=== PATIENT | male | born 1985 ===

== ENCOUNTER 2017-12-23 10:37 | Emergency (ER) | payer SELFPAY ==
[~2017-12-23] VITALS: Ht 180.3 cm; Wt 108.9 kg
--- OUTSIDE RECORDS SUMMARY | 2017-12-23 10:44 | XMS REPORT ---
Author Author [facility] Medical Staff Organization [facility] Address [address] [id number] Phone [phone] Summary purpose TRANSITION OF CARE AUTO GENERATION Chief Complaint and Reason for Visit No authorized Reason for Visit (Admitting Diagnosis) is available for this visit. Problem list No authorized problems tracked for continuity of care are available for this visit. Encounters No authorized problems tracked for encounter diagnoses are available for this visit. Medications No medications recorded for this patient visit Allergies, adverse reactions, alerts Allergen Category Ingredient Status Reaction Severity Onset No known drug allergies No known drug allergies No known drug allergies Confirmed or Verified Immunizations No immunizations recorded for this patient visit Relevant diagnostic tests and/or laboratory data No authorized results are available for this patient visit History of procedures No procedures recorded for this patient visit. Functional status No functional or cognitive status observations are available for this visit. Vital signs No authorized vital signs are available for this visit. Social history No Social History or smoking status observations were recorded for this visit. ( Unknown if ever smoked.) Treatment Plan No treatment plan text is available for this visit. Hospital discharge instructions No discharge instruction text is available for this visit.
--- OUTSIDE RECORDS SUMMARY | 2017-12-23 10:44 | XMS REPORT ---
Author Author [facility] Medical Staff Organization [facility] Address [address] [id number] Phone [phone] Summary purpose TRANSITION OF CARE AUTO GENERATION [...] visit Relevant diagnostic tests and/or laboratory data RESULTS Radiology Results 97-63-429357:58:00 Gallbladder Sono PACs Image DATE OF EXAM: May 23 2015 [id number] SONO : RADIOLOGY REPORT DATE OF SERVICE: 05/23/15 HISTORY:Right upper quadrant and flank pain, nausea. GALLBLADDER ULTRASOUND 0845 HOURS The gallbladder is normal without cholelithiasis or wall thickening. The bile ducts are normal in caliber. The visualized portions of the liver are normal. The right kidney is unobstructed. IMPRESSION: Negative gallbladder ultrasound. MD JEMMA De La Cruz/rizwana 05/23/2015 08:50:00 / 05/23/2015 16:17:30 cc:Dr. Jovany Alvares This document has been electronically Signed by: On: DATE OF EXAM: May 23 2015 [id number] [id number] : RADIOLOGY REPORT DATE OF SERVICE: 05/23/15 HISTORY:Right upper quadrant and flank pain, nausea. GALLBLADDER ULTRASOUND 0845 HOURS The gallbladder is normal without cholelithiasis or wall thickening. The bile ducts are normal in caliber. The visualized portions of the liver are normal. The right kidney is unobstructed. IMPRESSION: Negative gallbladder ultrasound. MD JEMMA De La Cruz/rizwana 05/23/2015 08:50:00 / 05/23/2015 16:17:30 cc:Dr. Jovany Alvares This document has been electronically Signed by: CRISTOBAL HIGGINS MD On: May 24 20158:58A Result Amended on 2015-05-24 at 08:58:56. Previous status was DC. History of procedures Procedure Code Code Type Description Date Performed Performing Physician 19409 CPT-4 ECHO EXAM OF ABDOMEN 05-23-2015 JO YEPEZ Functional status No functional or cognitive status [...]
--- OUTSIDE RECORDS SUMMARY | 2017-12-23 10:45 | XMS REPORT ---
Author [facility] Medical Staff Organization [facility] Address [address] [place], [place] [address] Phone [phone] Summary purpose TRANSITION OF CARE AUTO GENERATION [...] for this patient visit History of procedures Procedure Code Code Type Description Date Performed Performing Physician 33919 CPT-4 EMERGENCY DEPT VISIT 07-03-2015 GILBERTO BLANK 42468 CPT-4 EMERGENCY DEPT VISIT 07-03-2015 GILBERTO BLANK Functional status Functional Status Finding Observation Time Abdomen Appearance round 16-29-093292:00 Abdomen soft 37-21-271777:00 Hdez no 97-02-119426:00 Urination normal 53-08-738398:00 Quality sym/unlabored 30-01-541680:00 Cough non-productive 19-74-245629:00 Secretions no 50-31-453450:00 Breath Sounds RUL clear 61-79-444645:00 Breath Sounds RML clear 45-70-446774:00 Breath Sounds RLL clear 27-57-002118:00 Breath Sounds CATY clear 19-97-559613:00 Breath Sounds LLL clear 09-24-676549:00 Airway natural 34-41-185695:00 Chest Tube no 68-31-192217:00 Oxygen no :22 Temp >100.4 no 23-15-430660:00 Temp <96.8 no 85-18-750988:00 Chills with rigors no :00 HR > 90bpm no :00 Respirations > 20 no : Systolic <90 no : headache stiff neck no : Rapid Resp no : Nursing Note Vs obtained. Discussed discharge instructions and pt verbalized his understanding. Pt stable to ambulate of hart with scripts in hand and a note for work. Pt to waiting room until his ride arrives. :22 Vital signs Type Value Date Respiration Rate 20breaths per minute : Pulse 82beats per minute : Oxygen Saturation 95% :22 BP Systolic 138mmHg :22 BP Diastolic 87mmHg :22 Temperature 98.2F :22 Weight 270LB 07-54-019405:50 Social history Type Value Smoking Status NEVER SMOKER Treatment Plan No treatment plan text is available for this visit. Hospital discharge instructions Dismissal Condition fair Disposition on DC home DC Inst/Educ Give yes Med/Side Effects Rev yes PNE Vac None Flu Vac None Tetanus Vac current
--- OUTSIDE RECORDS SUMMARY | 2017-12-23 10:45 | XMS REPORT ---
Author Author [facility] Medical Staff Organization [facility] Address [address] [place], [place] [address] Phone [phone] Summary purpose TRANSITION OF CARE AUTO GENERATION [...] Relevant diagnostic tests and/or laboratory data RESULTS Therapeutic Drug Monitoring 75-87-933647:20:00 Result Normal Range Units Acetaminophen L 7.3 10.0-30.0 ug/ml Chemistry 57-45-064407:20:00 Result Normal Range Units Sodium 137 134-145 mEq/l Potassium 3.9 3.5-5.1 mEq/l Chloride 102 98-107 mEq/l CO2 23.0 22-28 mEq/l Glucose 104 70-105 mg/dl BUN 10 7-18 mg/dl Creatinine 0.91 0.6-1.3 mg/dl Calcium 9.1 8.4-10.2 mg/dl Uric Acid H 8.5 2.6-7.2 mg/dl TP - Total Protein 7.9 6.0-8.3 g/dl Albumin 4.2 3.5-5 g/dl Bilirubin - Total H 1.2 0.1-1.0 mg/dl AST 16 10-42 IU/L ALT 24 12-65 IU/L ALP 89 39-107 IU/L Osmolality L 273.2 280-300 mOsm/L Albumin/Globulin Ratio 1.1 0-8 Anion GAP 12.0 8-16 BUN/Creatinine Ratio 11.0 10-20 Estimated GFR 97 >=60 mL/min/1.7 Hematology 14-00-057498:20:00 Result Normal Range Units WBC H 11.5 4.8-10.8 103/uL RBC 4.8 4.7-6.1 106/uL HGB 14.9 13.0-18.0 g/dl HCT 43.7 41.9-52.0 % MCV 91.2 80-94 FL MCH H 31.1 27-31 pg MCHC 34.1 33-37 g/dl RDW 12.5 11.5-15.5 % PLT 242 130-400 103/uL MPV 10.3 7.3-10.4 FL Neutro % H 75.1 40-70 % Lymph % L 17.2 20-40 % [place] % 6.8 0-10.0 % Eos % 0.3 0-7.0 % Baso % 0.3 0-2 % Neutro # H 8.6 1.5-7.5 103/uL Lymph # 2.0 0.9-4.0 103/uL [place] # 0.8 0-0.8 103/uL Eos # 0.0 0-0.6 103/uL Baso # 0.0 0-0.1 103/uL Radiology Results [id number]:25:00 Ankle 3 View PACs Image DATE OF EXAM: Nov 03 2015 RAD 0094-ANKLE 3 VIEW- LEFT: RADIOLOGY REPORT DATE OF SERVICE: 11/03/15 HISTORY: Patient has ankle pain. Patient slipped on stairs 5 days earlier. LEFT ANKLE 3 VIEWS 1232 HOURS The ankle mortise appears intact. No fracture or joint effusion are seen. Soft tissues are normal. IMPRESSION: Negative study for any fracture. There is some soft tissue swelling. DO SANDY Lazcano/char 11/03/2015 12:57:00 / 11/03/2015 13:05:19 cc: This document has been electronically Signed by: On: DATE OF EXAM: Nov 03 2015 RAD 0094-ANKLE 3 VIEW- LEFT: RADIOLOGY REPORT DATE OF SERVICE: 11/03/15 HISTORY: Patient has ankle pain. Patient slipped on stairs 5 days earlier. LEFT ANKLE 3 VIEWS 1232 HOURS The ankle mortise appears intact. No fracture or joint effusion are seen. Soft tissues are normal. IMPRESSION: Negative study for any fracture. There is some soft tissue swelling. DO SANDY Lazcano/char 11/03/2015 12:57:00 / 11/03/2015 13:05:19 cc: This document has been electronically Signed by: RASHEED VALDES, JO On: :24P Result Amended on 2015-11-06 at 14:30:24. Previous status was OR. 38-93-523909:20:00 Result Normal Range Units MPV 10.3 7.3-10.4 FL History of procedures Procedure Code Code Type Description Date Performed Performing Physician 61103 CPT-4 ROUTINE VENIPUNCTURE 11-03-2015 JO MARLENI 15162 CPT-4 X-RAY EXAM OF ANKLE 11-03-2015 JO MARLENI 54080 CPT-4 COMPREHEN METABOLIC PANEL 11-03-2015 JO MARLENI 35474 CPT-4 ANALGESICS NON-OPIOID 1 OR 2 11-03-2015 JO MARLENI 98298 CPT-4 ASSAY OF BLOOD/URIC ACID 11-03-2015 JO MARLENI 97640 CPT-4 COMPLETE CBC W/AUTO DIFF WBC 11-03-2015 JO MARLENI 42929 CPT-4 EMERGENCY DEPT VISIT 11-03-2015 JO MARLENI 80092 CPT-4 EMERGENCY DEPT VISIT 11-03-2015 JO MARLENI Functional status Functional Status Finding Observation Time Abdomen Appearance round 45-61-990940:15 Abdomen soft 06-27-675793:15 Hdez no 75-75-227260:15 Urination normal 98-69-709666:15 Quality sym/unlabored 95-29-787434:15 Cough absent 91-36-470979:15 Secretions no 18-28-980130:15 Breath Sounds RUL clear 00-65-048292:15 Breath Sounds RML clear 09-99-390258:15 Breath Sounds RLL clear 39-72-271950:15 Breath Sounds CATY clear 76-90-517725:15 Breath Sounds LLL clear 50-00-570612:15 Airway natural 28-34-416511:15 Chest Tube no 99-12-916618:15 Oxygen no 74-86-825661:40 Temp >100.4 no 48-23-482059:15 Temp <96.8 no 89-08-538621:15 Chills with rigors no 34-38-069016:15 HR > 90bpm no 90-80-047262:15 Respirations > 20 no :15 Systolic <90 no :15 headache stiff neck no :15 Nursing Note PT was give extensive education on use of tylenol and IBP 20150709:42 Vital signs Type Value Date Respiration Rate 18breaths per minute :40 Pulse 77beats per minute :40 Oxygen Saturation 99% :40 BP Systolic 125mmHg :40 BP Diastolic 80mmHg :40 Temperature 97.8F :40 Height 70inches :35 Weight 250.2LB 04-41-762255:35 Social history Type Value Smoking Status FORMER SMOKER Treatment Plan No treatment plan text is available for this visit. Hospital discharge instructions Dismissal Condition good Disposition on DC home DC Inst/Educ Give yes Med/Side Effects Rev yes Comment: impernol PNE Vac None Flu Vac None
--- OUTSIDE RECORDS SUMMARY | 2017-12-23 10:45 | XMS REPORT ---
Author [facility] Medical Staff Organization [facility] Address [address] [place], [place] [address] Phone [phone] Summary purpose TRANSITION OF CARE AUTO GENERATION [...] recorded for this patient visit. Functional status Functional Status Finding Observation Time Abdomen Appearance round 28-46-318774:00 Abdomen soft 49-47-379482:00 Hdez no 19-03-000050:00 Urination normal 79-26-857013:00 Quality sym/unlabored 97-88-748031:00 Cough non-productive 72-28-236038:00 Secretions no 87-62-225689:00 Breath Sounds RUL clear 19-64-037214:00 Breath Sounds RML clear 50-03-772143:00 Breath Sounds RLL clear 02-02-945297:00 Breath Sounds CATY clear 68-24-978679:00 Breath Sounds LLL clear 93-44-363188:00 Airway natural 01-75-690776:00 Chest Tube no 68-19-885847: Oxygen no :22 Temp >100.4 no 06-20-852983:00 Temp <96.8 no 19-37-856836:00 Chills with rigors no 02-21-112176:00 HR > 90bpm no 22-35-900741:00 Respirations > 20 no 35-72-595316:00 Systolic <90 no :00 headache stiff neck no :00 Rapid Resp no : Nursing Note Vs obtained. Discussed discharge instructions and pt verbalized his understanding. Pt stable to ambulate of hart with scripts in hand and a note for work. Pt to waiting room until his ride arrives. : Vital signs Type Value Date Respiration Rate 20breaths per minute : Pulse 82beats per minute : Oxygen Saturation 95% :22 BP Systolic 138mmHg :22 BP Diastolic 87mmHg :22 Temperature 98.2F :22 Weight 270LB 33-99-379314:50 Social history Type Value Smoking Status NEVER SMOKER Treatment Plan No treatment plan text is available for this visit. Hospital discharge instructions Dismissal Condition fair Disposition on DC home DC Inst/Educ Give yes Med/Side Effects Rev yes PNE Vac None Flu Vac None Tetanus Vac current
--- OUTSIDE RECORDS SUMMARY | 2017-12-23 10:45 | XMS REPORT | Continuity of Care Document ---
Demographics x Preferred Language Unknown Marital Status Unknown Temple Affiliation Unknown Race Unknown Ethnic Group Unknown Author Author [facility] Organization [facility] Address Unknown Phone Unavailable Allergies Active Description Code Type Severity Reaction Onset Reported/Identified Relationship to Patient Clinical Status Yes No known drug allergies [id number] ND N/A N/A Confirmed or Verified Medications There is no data. Problems Date Dx Coded Attending Type Code Diagnosis Diagnosed By 11/09/2013 JO MILLER 826.0 FX PHALANX, FOOT-CLOSED 11/09/2013 JO MILLER 959.7 LOWER LEG INJURY NOS 11/09/2013 JO MILLER E916 STRUCK BY FALLING OBJECT Procedures Code [place] [address] X-RAY EXAM OF FOOT 11/09/2013 70165 EMERGENCY DEPT VISIT 11/09/2013 34298 EMERGENCY DEPT VISIT 11/09/2013 01140 ROUTINE VENIPUNCTURE 11/03/2015 26017 X-RAY EXAM OF ANKLE 11/03/2015 08106 COMPREHEN METABOLIC PANEL 11/03/2015 28233 ANALGESICS NON-OPIOID 1 OR 2 11/03/2015 56475 ASSAY OF BLOOD/URIC ACID 11/03/2015 10242 COMPLETE CBC W/AUTO DIFF WBC 11/03/2015 22130 EMERGENCY DEPT VISIT 11/03/2015 Results Test Result Range CBC WITH DIFF - 05/20/15 00:00 BASO% 0.4 % 0-2 EOS% 1.1 % 0-7.0 HCT 46.3 % 41.9-52.0 HGB 15.9 G/DL 13.0-18.0 LYMPH% 20.6 % 20-40 MCH 31.4 PG 27-31 MCHC 34.3 G/DL 33-37 MCV 91.5 FL 80-94 MONO% 6.3 % 0-10.0 MPV 10.5 FL 7.3-10.4 NEUTRO% 71.3 % 40-70 PLT 262 10^3u 130-400 RBC 5.1 10^6u 4.7-6.1 RDW 12.6 % 11.5-15.5 WBC 9.2 10^3u 4.8-10.8 NEUTRO# 6.5 10^3u 1.5-7.5 LYMPH# 1.9 10^3u 0.9-4.0 MONO# 0.6 10^3u 0-0.8 EOS# 0.1 10^3u 0-0.6 BASO# 0.0 10^3u 0-0.1 IMM GRANULOCYTE % 0.3 % IMM GRANULOCYTE # 0.0 10^3u 0-5 UA - 05/20/15 00:00 PH 6.0 4.5-8.0 SG 1.020 1.003-1.035 UABILI NEGATIVE UABLD NEGATIVE UACOLOR YEL UAGLU NEGATIVE UAKET NEGATIVE UALEUK NEGATIVE UANIT NEGATIVE UAURO 0.2 0-0.2 UCX NO CLARITY CL PROTEIN NEGATIVE UA WBC R05 UA RBC NORBC SQUAMOUS EPITHELIAL CELLS FEW BACTERIA Sperm present MUCOUS OCC LIP - 05/20/15 00:00 LIP 158 U/L 73-393 CMP - 05/20/15 00:00 ALB 4.1 G/DL 3.5-5 ALP 84 IU/L 39-107 ALT 53 IU/L 12-65 AST 43 IU/L 10-42 BCR 14.3 10-20 BUN 16 MG/DL 7-18 CA 9.4 MG/DL 8.4-10.2 CL 102 MEQ/L 98-107 CO2 23.3 MEQ/L 22-28 CREA 1.12 MG/DL 0.6-1.3 EGFR 77 eGFR >=60 GLU 112 MG/DL 70-105 K 4.5 MEQ/L 3.5-5.1 NA 138 MEQ/L 134-145 OSMSC 277.6 MOSML 280-300 TBIL 0.9 MG/DL 0.1-1.0 TP 7.6 G/DL 6.0-8.3 Albumin/Globulin Ratio 1.2 0-8 Anion Gap 12.7 8-16 CBC WITH DIFF - 11/03/15 00:00 BASO% 0.3 % 0-2 EOS% 0.3 % 0-7.0 HCT 43.7 % 41.9-52.0 HGB 14.9 G/DL 13.0-18.0 LYMPH% 17.2 % 20-40 MCH 31.1 PG 27-31 MCHC 34.1 G/DL 33-37 MCV 91.2 FL 80-94 MONO% 6.8 % 0-10.0 MPV 10.3 FL 7.3-10.4 NEUTRO% 75.1 % 40-70 PLT 242 10^3u 130-400 RBC 4.8 10^6u 4.7-6.1 RDW 12.5 % 11.5-15.5 WBC 11.5 10^3u 4.8-10.8 NEUTRO# 8.6 10^3u 1.5-7.5 LYMPH# 2.0 10^3u 0.9-4.0 MONO# 0.8 10^3u 0-0.8 EOS# 0.0 10^3u 0-0.6 BASO# 0.0 10^3u 0-0.1 IMM GRANULOCYTE % 0.3 % IMM GRANULOCYTE # 0.0 10^3u 0-5 CMP - 11/03/15 00:00 ALB 4.2 G/DL 3.5-5 ALP 89 IU/L 39-107 ALT 24 IU/L 12-65 AST 16 IU/L 10-42 BCR 11.0 10-20 BUN 10 MG/DL 7-18 CA 9.1 MG/DL 8.4-10.2 CL 102 MEQ/L 98-107 CO2 23.0 MEQ/L 22-28 CREA 0.91 MG/DL 0.6-1.3 EGFR 97 eGFR >=60 GLU 104 MG/DL 70-105 K 3.9 MEQ/L 3.5-5.1 NA 137 MEQ/L 134-145 OSMSC 273.2 MOSML 280-300 TBIL 1.2 MG/DL 0.1-1.0 TP 7.9 G/DL 6.0-8.3 Albumin/Globulin Ratio 1.1 0-8 Anion Gap 12.0 8-16 ACETAMINOPHEN - 11/03/15 00:00 ACETA 7.3 UG/ML 10.0-30.0 URIC - 11/03/15 00:00 URIC 8.5 MG/DL 2.6-7.2 Encounters ACCT No. Visit Date/Time Discharge Status Pt. Type Provider Facility Loc./Unit Complaint [id number] 11/03/2015 11:30:00 11/03/2015 13:43:00 DIS Emergency JO YEPEZ [facility] EMR [id number] 07/03/2015 07:54:00 07/03/2015 08:27:00 DIS Emergency JADON ESPINOZA [facility] EMR [id number] 05/23/2015 08:27:00 05/23/2015 08:27:00 DIS Outpatient JO YEPEZ [facility] [id number] 05/20/2015 11:22:00 05/20/2015 14:00:00 DIS Emergency JO YEPEZ [facility] EMR [id number] 11/09/2013 12:30:00 11/09/2013 13:55:00 DIS Emergency JO MILLER [facility] EMR [id number] 06/05/2015 00:00:00 Document Registration [id number] 06/05/2014 00:00:00 Document Registration [id number] 04/30/2017 16:55:00 04/30/2017 23:59:59 [facility] [id number] 03/24/2016 13:25:01 ACT Unknown
--- OUTSIDE RECORDS SUMMARY | 2017-12-23 10:45 | XMS REPORT ---
Author Author [facility] Medical Staff Organization [facility] Address [address] [id number] Phone [phone] Summary purpose TRANSITION OF CARE AUTO GENERATION [...] Relevant diagnostic tests and/or laboratory data RESULTS Routine Urinalysis 94-10-428454:30:00 Result Normal Range Units Color YELLOW Clarity Clear Specific [place] 1.020 1.003-1.035 pH 6.0 4.5-8.0 Glucose NEGATIVE Bilirubin NEGATIVE Ketones NEGATIVE Protein NEGATIVE Urobilinogen 0.2 0-0.2 E.U./dL Nitrites NEGATIVE Blood NEGATIVE Leukocytes NEGATIVE WBCs 0-5 RBCs No RBC's Seen. Squamous Epithelial Few Bacteria Sperm present Mucous Occasional Chemistry 53-08-153692:55:00 Result Normal Range Units Sodium 138 134-145 mEq/l Potassium 4.5 3.5-5.1 mEq/l Chloride 102 98-107 mEq/l CO2 23.3 22-28 mEq/l Glucose H 112 70-105 mg/dl BUN 16 7-18 mg/dl Creatinine 1.12 0.6-1.3 mg/dl Calcium 9.4 8.4-10.2 mg/dl TP - Total Protein 7.6 6.0-8.3 g/dl Albumin 4.1 3.5-5 g/dl Bilirubin - Total 0.9 0.1-1.0 mg/dl AST H 43 10-42 IU/L ALT 53 12-65 IU/L ALP 84 39-107 IU/L Lipase 158 73-393 U/L Osmolality L 277.6 280-300 mOsm/L Albumin/Globulin Ratio 1.2 0-8 Anion GAP 12.7 8-16 BUN/Creatinine Ratio 14.3 10-20 Estimated GFR 77 >=60 mL/min/1.7 Hematology 73-57-117049:55:00 Result Normal Range Units WBC 9.2 4.8-10.8 103/uL RBC 5.1 4.7-6.1 106/uL HGB 15.9 13.0-18.0 g/dl HCT 46.3 41.9-52.0 % MCV 91.5 80-94 FL MCH H 31.4 27-31 pg MCHC 34.3 33-37 g/dl RDW 12.6 11.5-15.5 % PLT 262 130-400 103/uL MPV H 10.5 7.3-10.4 FL Neutro % H 71.3 40-70 % Lymph % 20.6 20-40 % [place] % 6.3 0-10.0 % Eos % 1.1 0-7.0 % Baso % 0.4 0-2 % Neutro # 6.5 1.5-7.5 103/uL Lymph # 1.9 0.9-4.0 103/uL [place] # 0.6 0-0.8 103/uL Eos # 0.1 0-0.6 103/uL Baso # 0.0 0-0.1 103/uL Body Fluid 70-90-201819:30:00 Result Normal Range Units pH 6.0 4.5-8.0 Radiology Results 16-78-022821:04:00 Abdomen 2 View PACs Image DATE OF EXAM: May 20 2015 RAD 0037-ABDOMEN 2 VIEW : RADIOLOGY REPORT DATE OF SERVICE:05/20/15 HISTORY:Right flank pain. ABDOMEN 2 VIEWS 1205 HOURS There are no definite renal calculi. In the right side of the pelvis just to the right of the first coccygeal segment, there is a tiny opacity measuring 2.5 mm raising the question of distal right ureteric stone. Phleboliths could also have this appearance. The bowel gas pattern is normal. There is no free air. IMPRESSION:Question of distal right ureteric calculus versus a pelvic phlebolith. Clinical correlation is needed. Consider follow-up CT if felt clinically indicated. MD JEMMA De La Cruz/gricelda07/21/2014 19:29:00 / 05/21/2015 21:32:00 cc:Dr. Karli Tejeda - [facility] family doctor This document has been electronically Signed by: On: DATE OF EXAM: May 20 2015 RAD 0037-ABDOMEN 2 VIEW : RADIOLOGY REPORT DATE OF SERVICE:05/20/15 HISTORY:Right flank pain. ABDOMEN 2 VIEWS 1205 HOURS There are no definite renal calculi. In the right side of the pelvis just to the right of the first coccygeal segment, there is a tiny opacity measuring 2.5 mm raising the question of distal right ureteric stone. Phleboliths could also have this appearance. The bowel gas pattern is normal. There is no free air. IMPRESSION:Question of distal right ureteric calculus versus a pelvic phlebolith. Clinical correlation is needed. Consider follow-up CT if felt clinically indicated. MD JEMMA De La Cruz/gricelda07/21/2014 19:29:00 / 05/21/2015 21:32:00 cc:Dr. Karli Tejeda - [facility] family doctor This document has been electronically Signed by: CRISTOBAL HIGGINS MD On: May 22 2015 12:04P Result Amended on 2015-05-22 at 12:04:51. Previous status was MT. 98-31-626821:55:00 Result Normal Range Units MPV H 10.5 7.3-10.4 FL History of procedures Procedure Code Code Type Description Date Performed Performing Physician 89585 CPT-4 URINALYSIS AUTO W/SCOPE 05-20-2015 JO MARLENI 38511 CPT-4 COMPLETE CBC W/AUTO DIFF WBC 05-20-2015 JO MARLENI 11983 CPT-4 COMPREHEN METABOLIC PANEL 05-20-2015 JO MARLENI 96434 CPT-4 X-RAY EXAM OF ABDOMEN 05-20-2015 JO MARLENI 11509 CPT-4 ASSAY OF LIPASE 05-20-2015 JO MARLENI J1885 CPT-4 KETOROLAC TROMETHAMINE INJ 05-20-2015 JO MARLENI J2405 CPT-4 ONDANSETRON HCL INJECTION 05-20-2015 JO MARLENI J1170 CPT-4 HYDROMORPHONE INJECTION 05-20-2015 JO MARLENI J1170 CPT-4 HYDROMORPHONE INJECTION 05-20-2015 JO MARLENI 93351 CPT-4 ROUTINE VENIPUNCTURE 05-20-2015 JO MARLENI 94779 CPT-4 EMERGENCY DEPT VISIT 05-20-2015 JO MARLENI 53260 CPT-4 EMERGENCY DEPT VISIT 05-20-2015 JO MARLENI 31789 CPT-4 THER/PROPH/DIAG INJ IV PUSH 05-20-2015 JO MARLENI 81220 CPT-4 TX/PRO/DX INJ SAME DRUG DIE OPERATOR 05-20-2015 JO MARLENI 73251 CPT-4 TX/PRO/DX INJ NEW DRUG ADDON 05-20-2015 JO MARLENI 46195 CPT-4 HYDRATE IV INFUSION ADD-ON 05-20-2015 JO MARLENI Functional status Functional Status Finding Observation Time Abdomen Appearance flat 97-21-436877:30 Abdomen soft :30 Urination normal 86-33-896272:30 Quality sym/unlabored 15-19-445247:30 Airway natural :30 Chest Tube no :30 Temp >100.4 no :30 Temp <96.8 no :30 Chills with rigors no :30 HR > 90bpm no :30 Respirations > 20 no :30 Systolic <90 no :30 headache stiff neck no :30 Rapid Resp no :30 IV Site Location Lt hand :50 IV Type peripheral :50 IV Site Information discontinued :50 IV Site Start Attmpt 1 times 01-28-814775:50 IV Site Carlos 20 :50 IV Site Appearance WNL :50 IV Site Color clear :50 IV Site Patent yes :50 Dressing Type gauze :50 Nursing Note Pt given discharge instructions et verbalized an understanding of instructions given. Pt ambulatory off unit at this time. :55 Vital signs No authorized vital signs are available for this visit. Social history No Social History or smoking status observations were recorded for this visit. ( Unknown if ever smoked.) Treatment Plan No treatment plan text is available for this visit. Hospital discharge instructions Dismissal Condition good Disposition on DC home DC Inst/Educ Give yes Med/Side Effects Rev yes PNE Vac none Flu Vac none Tetanus Vac unsure
--- NOTE | 2017-12-23 11:12 | ED Integumentary General ---
General Chief Complaint: Skin/Wound Problems Stated Complaint: POSS SPIDER BITE ON LT CHEEK History of Present Illness Date Seen by Provider: Dec 23, 2017 Time Seen by Provider: 10:58 Initial Comments This is a 32 y/o male presenting to the ED via private vehicle for chief complaint of facial swelling after a presumed spider bite to the left cheek 3 days ago. Pt states that he woke up with a hot burning sensation on the left side of his face, he did not see or feel anything bite him. He states that the initial wound looked like 3 red dots. Pt reports he has constant pain, rated at a 7/10 with pain and swelling increasing. The pain radiates to his ear and jaw. He states that he has been squeezing the lesion with minimal drainage and tries to keep it clean with alcohol. He denies fever, chills, nausea or vomiting. Pt states he is "not feeling right". (ILENE RUTLEDGE) Allergies and Home Medications Allergies Coded Allergies: No Known Drug Allergies (Unverified , 12/23/17) Home Medications Sulfamethoxazole/Trimethoprim 1 Each Tablet, 1 EACH PO BID Prescribed by: JOSÉ LUIS MUNIZ on 12/23/17 1142 Patient Home Medication List Home Medication List Reviewed: Yes (ILENE RUTLEDGE) Constitutional: see HPI; No chills, No fever EENTM: see HPI, ear pain (L ear pain, radiation from his cheek ), mouth pain; No throat pain, No throat swelling Respiratory: no symptoms reported Cardiovascular: no symptoms reported Gastrointestinal: no symptoms reported; No constipation, No diarrhea, No nausea Skin: see HPI, other (swelling of left cheek ) (ILENE RUTLEDGE) Past Vdmltnv-Gaptna-Pllmcn Hx Patient Social History Alcohol Use: Occasionally Uses Alcohol Beverage of Choice: Beer Recreational Drug Use: No Smoking Status: Never a Smoker Recent Foreign Travel: No Contact w/Someone Who Travel: No (ILENE RUTLEDGE) Past Medical History Surgeries: Yes Orthopedic Respiratory: No Cardiac: No Neurological: No Genitourinary: No Gastrointestinal: No Musculoskeletal: No Endocrine: No HEENT: No Cancer: No Psychosocial: No Integumentary: No (ILENE RUTLEDGE) Physical Exam Vital Signs Vital Signs - First Documented 12/23/17 12/23/17 10:44 11:50 Temp 96.3 Pulse 78 Resp 18 B/P (MAP) 154/97 (116) Pulse Ox 98 (JOSÉ LUIS MORENO MD) Vital Signs Capillary Refill : (ILENE RUTLEDGE MED STUDENT) General Appearance: WD/WN, no apparent distress HEENT: TM abnormal (L) (TM slightly injected) Neck: non-tender, full range of motion, supple, normal inspection Cardiovascular: normal peripheral pulses, regular rate, rhythm, no edema, no gallop, no JVD, no murmur Respiratory: chest non-tender, lungs clear, normal breath sounds, no respiratory distress, no accessory muscle use 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, no motor/sensory deficits, alert, normal mood/affect, oriented x 3 Skin Problem Location: face Skin Problem Character: drainage (scant yellow discharge is noted on patients bandage), erythema (left lower cheek ), lesion (1 cm X 0.5 cm white-yellow ulceration surrounded by 3 cm x 2 cm raised induration and erythema, minimal fluid collection is noted with US ), swelling (Left lower cheek ) Lymphatic: other (2 lymph nodes are palpable in the submandibular region, non tender to palpation ) (ILENE RUTLEDGE STUDENT) Progress/Results/Core Measures Results/Orders Vital Signs/I&O 12/23/17 12/23/17 10:44 11:50 Temp 96.3 96.3 Pulse 78 78 Resp 18 18 B/P (MAP) 154/97 (116) 154/97 (116) Pulse Ox 98 (JOSÉ LUIS MORENO MD) Progress Progress Note : Time: 11:20 Progress Note patient seen and examined, US was used to determine if lesion needed drainage. Imaging shows minimal fluid collection, will start patient on antibiotics. (ILENE RUTLEDGE MED STUDENT) Progress Note : Progress Note This patient was personally interviewed, seen, and examined by me along with Ilene Rutledge, CARL[employer] Student. I have reviewed her documentation. I agree with her history, exam, assessment, and plan the following additions. Patient does not recall being bitten or stung. The lesion started with a few small red dots. Patient has other scattered abrasions and small breaks in the skin from being struck in the head by a pallet at work. Lesion no longer appears to be oozing. There is a area of fullness or induration directly beneath a cratered lesion. This was assessed by me with bedside ultrasound. No fluid collection was identified. Wound was dry and was therefore not cultured. Patient was started on antibiotics. Exam: Gen.: Alert, oriented, well-developed, no distress HEENT: Cratered lesion on the left cheek with localized induration. No swelling. No fluid collection on bedside ultrasound Heart: Regular rate and rhythm without murmur Lungs: Clear to auscultation bilaterally with normal effort Lymph: No significant periauricular or cervical lymphadenopathy appreciated by this provider. Skin: Localized erythema around the indurated area. (JOSÉ LUIS MORENO MD) Departure Impression Primary Impression: Cellulitis Qualified Codes: L03.211 - Cellulitis of face Disposition: HOME, SELF-CARE Condition: Stable Departure-Patient Inst. Decision time for Depature: 11:30 (JOSÉ LUIS MORENO MD) Referrals: NO,LOCAL PHYSICIAN (PCP/Family) Primary Care Physician Patient Instructions: Cellulitis (Skin Infection), Adult (DC) Add. Discharge Instructions: You to have a resolving abscess with some surrounding cellulitis. This should be treated with antibiotics. The exact cause of the wound is uncertain and may have been due to a small skin wound or a spider bite. Complete your antibiotics as prescribed. If you feel fluid is building up under the wound again, apply warm compresses for 10-20 minutes several times a day to encourage draining. If symptoms progress, return to care for further evaluation. Also return to care if you develop other symptoms such as fevers over 100. You may take Tylenol and/or ibuprofen for pain. All discharge instructions reviewed with patient and/or family. Voiced understanding. Scripts Sulfamethoxazole/Trimethoprim (Bactrim Ds Tablet) 1 Each Tablet 1 EACH PO BID, #14 TAB Prov: JOSÉ LUIS MORENO MD 12/23/17 ILENE RUTLEDGE MED STUDENT Dec 23, 2017 11:12 JOSÉ LUIS MORENO MD Dec 23, 2017 11:43
[2017-12-23] MEDS ORDERED: SULF1TAB35 PO (11:42)
[2017-12-23 11:50] VITALS: BP 154/97
== END 2017-12-23 11:50 | disposition home or self-care (01) ==
LOC: ER 10:40
DX: L03.211 Cellulitis of face (principal); Z98.890 Other specified postprocedural states
CPT/HCPCS: 99282

== ENCOUNTER 2018-02-11 10:18 | Emergency (ER) | payer SELFPAY ==
[~2018-02-11] VITALS: Ht 180.3 cm; Wt 100.7 kg
[~2018-02-11 10:18] MED LIST: SULF1TAB35 PO
--- OUTSIDE RECORDS SUMMARY | 2018-02-11 10:39 | XMS REPORT | Continuity of Care Document ---
Demographics x Preferred Language Unknown Marital Status Unknown [employer] Affiliation Unknown Race Unknown Ethnic Group Unknown Author Author [facility] Organization [facility] Address Unknown Phone Unavailable Allergies Active Description Code Type Severity Reaction Onset Reported/Identified Relationship to Patient Clinical Status Yes No known drug allergies [id number] ND N/A N/A Confirmed or Verified Yes No Known Drug Allergies [id number] Drug Allergy Unknown N/A 12/23/2017 Medications There is no data. Problems Date Dx Coded Attending Type Code Diagnosis Diagnosed By 11/09/2013 JO MILLER 826.0 FX PHALANX, FOOT-CLOSED 11/09/2013 JO MILLER 959.7 LOWER LEG INJURY NOS 11/09/2013 JO MILLER E916 STRUCK BY FALLING OBJECT 12/23/2017 JOSH LEI, JOSÉ LUIS T Ot L03.211 CELLULITIS OF FACE 12/23/2017 JOSH LEI, JOSÉ LUIS T Ot R22.0 LOCALIZED SWELLING, MASS AND LUMP, HEAD 12/23/2017 JOSÉ LUIS MORENO MD T Ot Z98.890 OTHER SPECIFIED POSTPROCEDURAL STATES 12/25/2017 JOSÉ LUIS MORENO MD Ot L03.211 CELLULITIS OF FACE 12/25/2017 JOSÉ LUIS MORENO MD Ot R22.0 LOCALIZED SWELLING, MASS AND LUMP, HEAD 12/25/2017 JOSÉ LUIS MORENO MD T Ot Z98.890 OTHER SPECIFIED POSTPROCEDURAL STATES Procedures Code [place] [address] X-RAY EXAM OF FOOT 11/09/2013 72916 EMERGENCY DEPT VISIT 11/09/2013 75779 EMERGENCY DEPT VISIT 11/09/2013 59760 ROUTINE VENIPUNCTURE 11/03/2015 24576 X-RAY EXAM OF ANKLE 11/03/2015 54779 COMPREHEN METABOLIC PANEL 11/03/2015 39903 ANALGESICS NON-OPIOID 1 OR 2 11/03/2015 59880 ASSAY OF BLOOD/URIC ACID 11/03/2015 73730 COMPLETE CBC W/AUTO DIFF WBC 11/03/2015 53428 EMERGENCY DEPT VISIT 11/03/2015 Results Test Result [...] Status Pt. Type Provider Facility Loc./Unit Complaint [id number] 11/03/2015 11:30:00 11/03/2015 13:43:00 DIS Emergency JO YEPEZ [facility] EMR [id number] 07/03/2015 07:54:00 07/03/2015 08:27:00 DIS Emergency JDAON ESPINOZA [facility] EMR [id number] 05/23/2015 08:27:00 05/23/2015 08:27:00 DIS Outpatient JO YEPEZ [facility] [id number] 05/20/2015 11:22:00 05/20/2015 14:00:00 DIS Emergency JO YEPEZ [facility] EMR [id number] 11/09/2013 12:30:00 11/09/2013 13:55:00 DIS Emergency JO MILLER [facility] EMR [id number] 06/05/2015 00:00:00 Document Registration [id number] 06/05/2014 00:00:00 Document Registration [id number] 12/23/2017 10:40:00 12/23/2017 11:50:00 DIS Emergency JOSH LEI, JOSÉ LUIS [facility] ER POSS SPIDER BITE ON LT CHEEK [id number] 04/30/2017 16:55:00 04/30/2017 23:59:59 CLS Outpatient TARA SALAZAR [facility] [id number] 03/24/2016 13:25:01 ACT Unknown
--- OUTSIDE RECORDS SUMMARY | 2018-02-11 10:39 | XMS REPORT | Clinical Summary ---
Author Author Admin, ALEXANDRU Organization [facility] Address Unknown Phone Allergies, Adverse Reactions, Alerts Allergy Name Reaction Description Start Date Severity Status Provider No Known Allergies Anette Sanchez Conditions or Problems Problem Name Problem Code Onset Date Status Entry Date Provider Comment Standard Description Annotate GOUT 274.9 Active Flakito Rodríguez MD Gout, unspecified BACK PAIN 724.5 Active Flakito Rodríguez MD Backache, unspecified ARM PAIN, LEFT 729.5 Active Tiffany Ellington APRN Pain in limb Subungual hematoma 923.3 Active Jovany Alvares MD Contusion of finger Fracture, toe 826.0 Active Jovany Alvares MD Closed fracture of one or more phalanges of foot Medication List Medication Instructions Start Date Stop Date Generic Name [facility] Status Provider Patient Instruction HYDROCODONE-ACETAMINOPHEN 5-325 MG TABS 1-2 TABS PO Q 4-6 HRS PRN HYDROCODONE-ACETAMINOPHEN 43308220224 Active Jovany Alvares MD Active IBUPROFEN 800 MG TABS 1 tab every 8 hours as needed for pain 2013 IBUPROFEN 23215699839 No Longer Active Jovany Alvares MD Active PREDNISONE 20 MG TAB 1 tab twice daily for 3 day, then one daily for three days PREDNISONE 19629817535 No Longer Active Jovany Alvares MD Active INDOMETHACIN 50 MG CAPS 1 po TID PRN Pain INDOMETHACIN 43551203693 No Longer Active Tiffany Ellington APRN Active TRAMADOL HCL 50 MG TABS 1 twice a day as needed for pain TRAMADOL HCL 46391676128 No Longer Active Tiffany Ellington APRN Active TRAMADOL HCL 50 MG TABS 1 twice a day as needed for pain TRAMADOL HCL 50 MG TABS 202792 TRAMADOL HCL Inactive INDOMETHACIN 50 MG CAPS 1 po TID PRN Pain INDOMETHACIN 50 MG CAPS 603398 INDOMETHACIN Inactive PREDNISONE 20 MG TAB 1 tab twice daily for 3 day, then one daily for three days PREDNISONE 20 MG TAB 175278 PREDNISONE Inactive IBUPROFEN 800 MG TABS 1 tab every 8 hours as needed for pain 2013 IBUPROFEN 800 MG TABS 828073 IBUPROFEN Inactive Vital Signs Date Name Value Unit Range Description blood pressure, diastolic 88 mm[Hg] BP vallejo blood pressure, systolic 138 mm[Hg] BP sys height E&M 71 [in_us] Bdy height pulse rate E&M 71 /min Heart rate temperature E&M 98.7 [degF] Body temperature weight E&M 261 [lb_av] Weight Measured blood pressure, diastolic 81 mm[Hg] BP vallejo blood pressure, systolic 126 mm[Hg] BP sys height E&M 71 [in_us] Bdy height pulse rate E&M 64 /min Heart rate temperature E&M 97.1 [degF] Body temperature weight E&M 265 [lb_av] Weight Measured Encounters Code Encounter Date Provider Facility CPT-22883 Level 3 Est. Patient 19:11:20 CDT Jovany Alvares MD [facility] CPT-05340 Level 3 Est. Patient 15:14:05 CDT Tiffany Ellington APRN [facility] CPT-94800 Level 2 New Patient 14:33:43 CDT Flakito Rodríguez MD [facility]
[2018-02-11] MEDS ORDERED: LIDOCAINE 1% INJ 20 ML 20 ML VIAL ONE (10:47)
[2018-02-11] MEDS ORDERED: LIDOCAINE 1% INJ 20 ML 20 ML VIAL INJ ONE (11:00)
[2018-02-11] MEDS ORDERED: HYDR-757 PO (11:11)
[2018-02-11] MEDS ORDERED: SULF1TAB35 PO (11:11)
--- NOTE | 2018-02-11 11:11 | ED Integumentary General ---
General Chief Complaint: Skin/Wound Problems Stated Complaint: BOIL ON LOWER BACK Nursing Triage Note: PT STATES HE HAS A BOIL ON HIS LT BUTTOCKS THAT STARTED 2 DAYS AGO AND IS GETTING WORSE, NO HX OF HAVIG ABSCESS DRAINED, UNKNOWN IF HE SAT ON ANYTHING TO CAUSE A WOUND. Source: patient Exam Limitations: no limitations History of Present Illness Date Seen by Provider: Feb 11, 2018 Time Seen by Provider: 10:55 Initial Comments To ER with c/o 2 day history of left buttock abscess. no fevers or chills Timing/Duration: just prior to arrival Severity: moderate Possible Cause: no cause identified Allergies and Home Medications Allergies Coded Allergies: No Known Drug Allergies (Unverified , 12/23/17) Home Medications Sulfamethoxazole/Trimethoprim 1 Each Tablet, 1 EACH PO BID Prescribed by: JOSÉ LUIS MUNIZ on 12/23/17 1142 Patient Home Medication List Home Medication List Reviewed: Yes Constitutional: see HPI; No chills, No fever EENTM: see HPI Respiratory: no symptoms reported Cardiovascular: no symptoms reported Genitourinary: no symptoms reported Musculoskeletal: no symptoms reported Skin: see HPI Psychiatric/Neurological: No Symptoms Reported Endocrine: No Symptoms Reported Hematologic/Lymphatic: No Symptoms Reported Past Fuenjmh-Saxpom-Iwygfy Hx Patient Social History Alcohol Use: Occasionally Uses Number of Drinks Today: AA Alcohol Beverage of Choice: Beer Recreational Drug Use: No Smoking Status: Former Smoker Former Smoker, Quit: Feb 04, 2006 Recent Foreign Travel: No Contact w/Someone Who Travel: No Recent Infectious Disease Expo: No Recent Hopitalizations: No Seasonal Allergies Seasonal Allergies: No Past Medical History Surgeries: Yes (LT ARM) Orthopedic Respiratory: No Cardiac: No Neurological: No Genitourinary: No Gastrointestinal: No Musculoskeletal: No Endocrine: No HEENT: No Cancer: No Psychosocial: No Integumentary: No Physical Exam Vital Signs Vital Signs - First Documented 02/11/18 10:31 Temp 97.5 Pulse 70 Resp 20 B/P (MAP) 144/91 (108) Pulse Ox 99 O2 Delivery Room Air Capillary Refill : Less Than 3 Seconds General Appearance: WD/WN, no apparent distress HEENT: PERRL/EOMI, normal ENT inspection Neck: non-tender, full range of motion Neurologic/Psychiatric: alert, normal mood/affect, oriented x 3 Skin: normal color, warm/dry Skin Problem Character: abscess, other (8cm erhtyema over left ischium. minimal purulent discharge from a central punctum.) Procedures/Interventions I&D : Blade Size: 11 I & D Procedure: betadine prep Packing/Drain: Idoform 07/10 Progress Anesthetized with 2 mL of 1% lidocaine without epinephrine. Open with a 1 similar incision using an 11 blade scalpel. A moderate amount of purulent material was expressed. Culture collected and sent to lab. Wound cavity then irrigated with Betadine/saline solution then packed with a couple inches of quarter-inch iodoform covered with gauze. Progress/Results/Core Measures Results/Orders My Orders Orders - SARIKA WORTHINGTON APRN Lidocaine 1% Inj 20 Ml (Xylocaine 1% Inj (02/11/18 11:00) Wound Culture (02/11/18 10:46) Lidocaine 1% Inj 20 Ml (Xylocaine 1% Inj (02/11/18 10:47) Medications Given in ED Current Medications Medications Dose Ordered Sig/Zack Route Start Time Stop Time Status Last Admin Dose Admin Lidocaine HCl 20 ml ONCE ONCE INJ 02/11/18 11:00 02/11/18 11:01 DC 02/11/18 10:56 5 ML Vital Signs/I&O 02/11/18 02/11/18 10:31 10:56 Temp 97.5 97.5 Pulse 70 Resp 20 B/P (MAP) 144/91 (108) Pulse Ox 99 O2 Delivery Room Air Blood Pressure Mean: 108 Departure Communication (Admissions) , No perineal involvement, no scrotal involvement Impression Primary Impression: Abscess Disposition: 01 HOME, SELF-CARE Condition: Stable Departure-Patient Inst. Decision time for Depature: 11:09 Referrals: NO,LOCAL PHYSICIAN (PCP/Family) Primary Care Physician Patient Instructions: Abscess Incision and Drainage (DC) Add. Discharge Instructions: 1. Please return here on Friday morning for packing removal and wound recheck. Return here before then for any fevers or worsening symptoms worsening pain or other concerns. Take antibiotics as directed. All discharge instructions reviewed with patient and/or family. Voiced understanding. Scripts Hydrocodone/Acetaminophen (Munger 5-325 Tablet) 1 Each Tablet 1 EACH PO Q4H PRN for FEVER, #14 TAB Prov: SARIKA WORTHINGTON APRN 02/11/18 Sulfamethoxazole/Trimethoprim (Bactrim Ds Tablet) 1 Each Tablet 1 EACH PO BID, #14 TAB Prov: SARIKA WORTHINGTON APRN 02/11/18 Work/School Note: Work Release Form Date Seen in the Emergency Department: Feb 11, 2018 Return to Work: Feb 13, 2018 SARIKA WORTHINGTON APRN Feb 11, 2018 11:11
[2018-02-11] MEDS ORDERED: TRIM/SULFAMETH 160/800 (SEPTRA DS) TAB PO ONE (11:15)
[2018-02-11 11:29] VITALS: BP 140/88
== END 2018-02-11 11:28 | disposition home or self-care (01) ==
LOC: EDUNIT# 10:18 → ER 10:21
DX: L02.31 Cutaneous abscess of buttock (principal); Z87.891 Personal history of nicotine dependence
CPT/HCPCS: 10061; 87070; 87077; 87186; 87205

== ENCOUNTER 2018-02-13 11:33 | Emergency (ER) | payer SELFPAY ==
[~2018-02-13] VITALS: Ht 180.3 cm; Wt 93.0 kg
[~2018-02-13 11:33] MED LIST changes: +HYDR-757 PO
--- OUTSIDE RECORDS SUMMARY | 2018-02-13 11:39 | XMS REPORT | Continuity of Care Document ---
Demographics x Preferred Language Unknown Marital Status Unknown Oriental Orthodox Affiliation Unknown Race Unknown Ethnic Group Unknown Author Author [facility] Organization [facility] Address Unknown Phone Unavailable Allergies Active Description Code Type Severity Reaction Onset Reported/Identified Relationship to Patient Clinical Status Yes No known drug allergies [id number] ND N/A N/A Confirmed or Verified Yes No Known Drug Allergies [id number] Drug Allergy Unknown N/A 12/23/2017 Medications There [...] Procedures Code [place] [address] X-RAY EXAM OF FOOT 11/09/2013 12009 EMERGENCY DEPT VISIT 11/09/2013 77349 EMERGENCY DEPT VISIT 11/09/2013 54180 ROUTINE VENIPUNCTURE 11/03/2015 18980 X-RAY EXAM OF ANKLE 11/03/2015 91315 COMPREHEN METABOLIC PANEL 11/03/2015 54111 ANALGESICS NON-OPIOID 1 OR 2 11/03/2015 03019 ASSAY OF BLOOD/URIC ACID 11/03/2015 87801 COMPLETE CBC W/AUTO DIFF WBC 11/03/2015 40174 EMERGENCY DEPT VISIT 11/03/2015 Results Test Result [...] - 11/03/15 00:00 URIC 8.5 MG/DL 2.6-7.2 Gram stain microscopy - 02/11/18 11:00 Gram stain microscopy Red blood cell debris NRG Bacteria identification in wound by culture - 02/11/18 11:00 Bacteria identification in wound by culture RML NRG FREE TEXT EXTERNAL MANY NRG QUANTITY OF GROWTH . NRG FREE TEXT ENTRY 2 REPORT PRINTED 02-12-2018 0906 NRG Encounters ACCT No. Visit Date/Time Discharge Status Pt. Type Provider Facility Loc./Unit Complaint [id number] 11/03/2015 11:30:00 11/03/2015 13:43:00 DIS Emergency JO YEPEZ [facility] EMR [id number] 07/03/2015 07:54:00 07/03/2015 08:27:00 DIS Emergency JADON ESPINOZA [facility] EMR [id number] 05/23/2015 08:27:00 05/23/2015 08:27:00 DIS Outpatient JO YEPEZ [facility] RAD [id number] 05/20/2015 11:22:00 05/20/2015 14:00:00 DIS Emergency JO YEPEZ [facility] EMR [id number] 11/09/2013 12:30:00 11/09/2013 13:55:00 DIS Emergency JO MILLER [facility] EMR [id number] 06/05/2015 00:00:00 Document Registration [id number] 06/05/2014 00:00:00 Document Registration [id number] 12/23/2017 10:40:00 12/23/2017 11:50:00 DIS Emergency JOSH LEI, JOSÉ LUIS [facility] ER POSS SPIDER BITE ON LT CHEEK [id number] 02/11/2018 17:11:00 Document Registration [id number] 04/30/2017 16:55:00 04/30/2017 23:59:59 [facility] Outpatient TARA SALAZAR [facility] [id number] 03/24/2016 13:25:01 ACT Unknown
--- NOTE | 2018-02-13 12:16 | ED Integumentary General ---
General Chief Complaint: Skin/Wound Problems Stated Complaint: ALLERGIC TO MEDICATION/WOUND CHECK Nursing Triage Note: PATIENT STATES THAT HE IS HERE FOR CONCERNS ABOUT HIS SKIN. HE WAS HERE TWO DAYS AGO TO HAVE AN ABCESS DRAINED. HE WAS PLACED ON BACTRIM. HE NOW HAS A RED BUMP/RASH ON HIS FACE AND STATES HE HAS A "SEVERE RASH" ON HIS GENITALS. STATES HIS SKIN IS PEELING OFF HIS GENITALS. Source: patient Exam Limitations: no limitations History of Present Illness Date Seen by Provider: Feb 13, 2018 Time Seen by Provider: 12:14 Initial Comments Patient is a 32-year-old male who presents to the emergency room with concerns for his skin. He was seen 2 days ago and had an I&D of an abscess on his left buttocks and was put on Bactrim. He reports that he had a reaction to the medication and it caused a bump on his face and a rash to his genital. He states the skin is peeling off of his genitals. He denies shortness of breath, itching rash. Timing/Duration: yesterday Associated Symptoms: change in skin texture Allergies and Home Medications Allergies Coded Allergies: No Known Drug Allergies (Unverified , 12/23/17) Home Medications Hydrocodone/Acetaminophen 1 Each Tablet, 1 EACH PO Q4H PRN for FEVER Prescribed by: SARIKA WORTHINGTON on 02/11/18 1111 Sulfamethoxazole/Trimethoprim 1 Each Tablet, 1 EACH PO BID Prescribed by: JOSÉ LUIS MUNIZ on 12/23/17 1142 Sulfamethoxazole/Trimethoprim 1 Each Tablet, 1 EACH PO BID Prescribed by: SARIKA WORTHINGTON on 02/11/18 1111 Patient Home Medication List Home Medication List Reviewed: Yes Constitutional: see HPI; No chills, No fever EENTM: other (red bump on his right cheek.) Genitourinary: see HPI, other ("white skin to the head of his penis") Skin: see HPI, lesions (draining abscess to his left buttocks), rash All Other Systems Reviewed Negative Unless Noted: Yes Past Ujdbqez-Fsuusc-Tilais Hx Past Med/Social Hx: Reviewed Nursing Past Med/Soc Hx Patient Social History Alcohol Beverage of Choice: Beer Former Smoker, Quit: Feb 04, 2006 Recent Foreign Travel: No Contact w/Someone Who Travel: No Recent Infectious Disease Expo: No Recent Hopitalizations: No Seasonal Allergies Seasonal Allergies: No Past Medical History Surgeries: Yes (LT ARM) Orthopedic Respiratory: No Cardiac: No Neurological: No Genitourinary: No Gastrointestinal: No Musculoskeletal: No Endocrine: No HEENT: No Cancer: No Psychosocial: No Integumentary: No Family Medical History Reviewed Nursing Family Hx Physical Exam Vital Signs Vital Signs - First Documented 02/13/18 11:50 Temp 96.6 Pulse 80 Resp 20 B/P (MAP) 143/83 (103) Pulse Ox 98 Capillary Refill : Less Than 3 Seconds General Appearance: WD/WN, no apparent distress Respiratory: lungs clear, normal breath sounds, no respiratory distress, no accessory muscle use Neurologic/Psychiatric: alert, normal mood/affect, oriented x 3 Skin: other (the patient is an uncircumcised male and a yeast infection has started after the antibiotic use.) Skin Problem Location: face (the patient has folliculitis to the left side of his face.), other (foreskin) Progress/Results/Core Measures Results/Orders Vital Signs/I&O 02/13/18 02/13/18 11:50 12:33 Temp 96.6 96.6 Pulse 80 80 Resp 20 20 B/P (MAP) 143/83 (103) 143/83 (103) Pulse Ox 98 98 Blood Pressure Mean: 103 Progress Progress Note : Progress Note I have seen and evaluated the patient. I believe that the patient has developed a yeast infection due to not being circumcised and recent start of antibiotics. I have informed him of plans of care, close follow up with primary care, and return precautions. Departure Impression Primary Impression: Abscess Additional Impressions: Wound check, abscess Balanitis Disposition: 01 HOME, SELF-CARE Condition: Stable/Unchanged Departure-Patient Inst. Referrals: NO,LOCAL PHYSICIAN (PCP/Family) Primary Care Physician Patient Instructions: Balanitis (DC), Folliculitis (DC), Skin Abscess Add. Discharge Instructions: Continue all previously prescribed medications as directed. Start using clotrimazole 1% [id number] to your foreskin area twice a day for 7 days. Practice good hygiene including bathing twice a day. Follow up with the doctor choice within 1 week for recheck. Return back to the emergency room for any concerns as needed. All discharge instructions reviewed with patient and/or family. Voiced understanding. Work/School Note: Work Release Form Date Seen in the Emergency Department: Feb 13, 2018 Return to Work: Feb 14, 2018 Restrictions: No Restrictions MARTHA HOWARD Feb 13, 2018 12:16
[2018-02-13 12:33] VITALS: BP 143/83
== END 2018-02-13 12:39 | disposition home or self-care (01) ==
LOC: EDUNIT# 11:33 → ER 11:35
DX: L02.31 Cutaneous abscess of buttock (principal); N48.1 Balanitis; Z87.891 Personal history of nicotine dependence
CPT/HCPCS: 99282

== ENCOUNTER 2018-04-21 12:38 | Emergency (ER) | payer SELFPAY ==
[~2018-04-21] VITALS: Ht 180.3 cm; Wt 91.6 kg
[~2018-04-21 12:38] MED LIST changes: +HYDR-4226 PO; -HYDR-757 PO
--- OUTSIDE RECORDS SUMMARY | 2018-04-21 12:46 | XMS REPORT | Continuity of Care Document ---
Demographics x Preferred Language Unknown Marital Status Unknown Quaker Affiliation Unknown Race Unknown Ethnic Group Unknown Author Author [facility] Organization [facility] Address Unknown Phone Unavailable Allergies Active Description Code Type Severity Reaction Onset Reported/Identified Relationship to Patient Clinical Status Yes No known drug allergies [id number] ND N/A N/A Confirmed or Verified Yes No Known Drug Allergies [id number] Drug Allergy Unknown N/A 12/23/2017 Medications There is no data. Problems Date Dx Coded Attending Type Code Diagnosis Diagnosed By 11/09/2013 JO MILLER 826.0 FX PHALANX, FOOT-CLOSED 11/09/2013 JO MILLER 959.7 LOWER LEG INJURY NOS 11/09/2013 JO MILLER E916 STRUCK BY FALLING OBJECT 12/23/2017 JOSH LEI, JOSÉ LUIS Alonso Ot L03.211 CELLULITIS OF FACE 12/23/2017 JOSH LEI, JOSÉ LUIS T Ot R22.0 LOCALIZED SWELLING, MASS AND LUMP, HEAD 12/23/2017 JOSÉ LUIS MORENO MD Ot Z98.890 OTHER SPECIFIED POSTPROCEDURAL STATES 12/25/2017 JOSÉ LUIS MORENO MD Ot L03.211 CELLULITIS OF FACE 12/25/2017 JOSÉ LUIS MORENO MD Ot R22.0 LOCALIZED SWELLING, MASS AND LUMP, HEAD 12/25/2017 JOSÉ LUIS MORENO MD T Ot Z98.890 OTHER SPECIFIED POSTPROCEDURAL STATES 02/11/2018 Ot L02.31 CUTANEOUS ABSCESS OF BUTTOCK 02/11/2018 Ot Z87.891 PERSONAL HISTORY OF NICOTINE DEPENDENCE 02/13/2018 Ot L02.31 CUTANEOUS ABSCESS OF BUTTOCK 02/13/2018 Ot 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 02/13/2018 Ot Z87.891 PERSONAL HISTORY OF NICOTINE DEPENDENCE Procedures Code [place] [address] X-RAY EXAM OF FOOT 11/09/2013 85875 EMERGENCY DEPT VISIT 11/09/2013 92500 EMERGENCY DEPT VISIT 11/09/2013 86575 ROUTINE VENIPUNCTURE 11/03/2015 65251 X-RAY EXAM OF ANKLE 11/03/2015 79900 COMPREHEN METABOLIC PANEL 11/03/2015 71884 ANALGESICS NON-OPIOID 1 OR 2 11/03/2015 51275 ASSAY OF BLOOD/URIC ACID 11/03/2015 73646 COMPLETE CBC W/AUTO DIFF WBC 11/03/2015 38437 EMERGENCY DEPT VISIT 11/03/2015 Results Test Result [...] 11:00 Bacteria identification in wound by culture [id number] NRG FREE TEXT EXTERNAL MANY NRG QUANTITY OF GROWTH . NRG FREE TEXT ENTRY 2 RML SENSITIVITY REPORTED 02/13/18 12:05 NRG CALL POSITIVES (F1 HELP) CALLED TO CIERA /ER 02/13/18 13:05 BY Gilbert GONZALEZ [facility] RML Sensitivity Panel - 02/11/18 11:00 Oxacillin susceptibility test by minimum inhibitory concentration R NRG Clindamycin susceptibility test by minimum inhibitory concentration <= NRG Erythromycin susceptibility test by minimum inhibitory concentration <= NRG Trimethoprim/sulfamethoxazole susceptibility test by minimum inhibitoryconcentration S NRG Vancomycin susceptibility test by minimum inhibitory concentration 1 NRG Levofloxacin susceptibility test by minimum inhibitory concentration 4 NRG Rifampin susceptibility test by minimum inhibitory concentration <= NRG Cefazolin susceptibility test by minimum inhibitory concentration > NRG Linezolid susceptibility test by minimum inhibitory concentration < = NRG Penicillin G susceptibility test by minimum inhibitory concentration > NRG Moxifloxacin susceptibility test by minimum inhibitory concentration S NRG Minocycline susc KIP 1 NRG Encounters ACCT No. Visit Date/Time Discharge Status Pt. Type Provider Facility Loc./Unit Complaint [id number] 11/03/2015 11:30:00 11/03/2015 13:43:00 DIS Emergency MARLENI, JO D [facility] EMR [id number] 07/03/2015 07:54:00 07/03/2015 08:27:00 DIS Emergency TANIAMARILYNNJADON [facility] EMR [id number] 05/23/2015 08:27:00 05/23/2015 08:27:00 DIS Outpatient JO YEPEZ [facility] [id number] 05/20/2015 11:22:00 05/20/2015 14:00:00 DIS Emergency JO YEPEZ [facility] EMR [id number] 11/09/2013 12:30:00 11/09/2013 13:55:00 DIS Emergency JO MILLER [facility] EMR [id number] 06/05/2015 00:00:00 Document Registration [id number] 06/05/2014 00:00:00 Document Registration [id number] 12/23/2017 10:40:00 12/23/2017 11:50:00 DIS Emergency JOSH LEI, JOSÉ LUIS Alonso [facility] ER POSS SPIDER BITE ON LT CHEEK [id number] 02/13/2018 11:35:00 Document Registration [id number] 02/11/2018 17:11:00 Document Registration [id number] 04/30/2017 16:55:00 04/30/2017 23:59:59 CLS Outpatient MARTIN PATTON [facility] [id number] 03/24/2016 13:25:01 ACT Unknown
--- NOTE | 2018-04-21 14:29 | ED Upper Extremity ---
General Chief Complaint: Upper Extremity Stated Complaint: R WRIST INJ Nursing Triage Note: pt reports r wrist and forearm pain since friday at 1600 after a fall off a ladder. Nursing Sepsis Screen: No Definite Risk Source: patient Exam Limitations: no limitations History of Present Illness Date Seen by Provider: Apr 21, 2018 Time Seen by Provider: 14:27 Initial Comments Patient is a 32-year-old male who presents to the emergency room with complaints of right wrist and right hand pain that started on 04/18/18 after falling 3-4 foot off of a ladder landing in a gaviria bracing himself with his right hand when he fell. He denies any other injuries from the fall other than the wrist and hand pain. Denies hitting his head, denies neck pain. Onset: last week Pain/Injury Location: right wrist, right hand Method of Injury: fell Allergies and Home Medications Allergies Coded Allergies: No Known Drug Allergies (Unverified , 12/23/17) Home Medications Hydrocodone/Acetaminophen 1 Each Tablet, 1 EACH PO Q4H PRN for FEVER Prescribed by: SARIKA WORTHINGTON on 02/11/18 1111 Sulfamethoxazole/Trimethoprim 1 Each Tablet, 1 EACH PO BID Prescribed by: JOSÉ LUIS MUNIZ on 12/23/17 1142 Sulfamethoxazole/Trimethoprim 1 Each Tablet, 1 EACH PO BID Prescribed by: SARIKA WORTHINGTON on 02/11/18 1111 Patient Home Medication List Home Medication List Reviewed: Yes Review of Systems Constitutional: see HPI; No chills, No fever Musculoskeletal: see HPI, joint pain (right wrist, right hand) All Other Systems Reviewed Negative Unless Noted: Yes Past Swtrmdx-Mocdmu-Xnlaoi Hx Past Med/Social Hx: Reviewed Nursing Past Med/Soc Hx Patient Social History Alcohol Use: Occasionally Uses Number of Drinks Today: AA Alcohol Beverage of Choice: Beer Recreational Drug Use: No Drug of Choice: past hx weed Smoking Status: Former Smoker Former Smoker, Quit: Feb 04, 2006 Recent Foreign Travel: No Contact w/Someone Who Travel: No Recent Infectious Disease Expo: No Recent Hopitalizations: No Physical Abuse: No Sexual Abuse: No Mistreated: No Fear: No Seasonal Allergies Seasonal Allergies: No Past Medical History Surgeries: Yes (LT ARM) Orthopedic Respiratory: No Cardiac: No Neurological: No Genitourinary: No Gastrointestinal: No Musculoskeletal: No Endocrine: No HEENT: No Cancer: No Psychosocial: No Integumentary: No Family Medical History Reviewed Nursing Family Hx Physical Exam Vital Signs Vital Signs - First Documented 04/21/18 13:53 Temp 98.1 Pulse 81 Resp 20 B/P (MAP) 137/97 (110) Pulse Ox 99 Capillary Refill : Less Than 3 Seconds Height, Weight, BMI Height: 5'11.00" Weight: 202lbs. 0oz. 91.572688db; BMI Method:Stated General Appearance: WD/WN, no apparent distress Cardiovascular: normal peripheral pulses, regular rate, rhythm, no edema, no gallop, no JVD, no murmur Respiratory: chest non-tender, lungs clear, normal breath sounds, no respiratory distress, no accessory muscle use Wrist: Yes normal inspection, Yes normal ROM Hand: normal ROM, Right, ecchymosis (to the right lateral dorsal surface of hand. ) Neurologic/Tendon: normal sensation, normal motor functions, normal tendon functions, responds to pain, no evidence tendon injury, other (distal pulses present, normal capillary refill. ) Neurologic/Psychiatric: alert, normal mood/affect, oriented x 3 Skin: normal color, warm/dry Progress/Results/Core Measures Results/Orders My Orders Orders - MARTHA HOWARD Wrist, Right, 3 Views Or More (04/21/18 14:26) Hand, Right, 3 Views (04/21/18 14:26) Vital Signs/I&O Blood Pressure Mean: 110 Progress Progress Note : Time: 15:20 Progress Note I have seen and evaluated the patient. I have informed him of normal imaging studies. He agrees with plans of care, plans for discharge, return precautions were given. Voices no questions or concerns. Diagnostic Imaging Diagonstic Imaging: Xray Plain Films/CT/US/NM/MRI: hand, other (wrist) Comments NAME: MEGAN MCCALL [facility] REC#: [id number] PHYSICIAN: MARTHA HOWARD CC: MARTHA HOWARD; CARLOS KWONG MD Page 1 of 1 RADIOLOGY REPORT VIA [facility]. [place], [place] CC: MARTHA HOWARD; CARLOS KWONG MD Page 1 of 1 RADIOLOGY REPORT NAME: MEGAN MCCALL [facility] REC#: [id number] PT STATUS: DEP ER : 1985 PHYSICIAN: MARTHA HOWARD ADMIT DATE: 04/21/18/ER Signed Date of Exam: 04/21/18 HAND, RIGHT, 3 VIEWS INDICATION: Right wrist and hand pain after a fall from a ladder. FINDINGS: There is mild bowing deformity of the distal shaft of the fifth metacarpal. A fracture line is not identified. No other fracture or malalignment is seen. There is no abnormal lytic or sclerotic focus. There is a possible old fracture deformity involving the ulnar styloid process with mild ulna minus variation. IMPRESSION: An ossicle at the level of the ulnar styloid process may be the result of an old injury. The bowing of the distal fifth metacarpal shaft may also be secondary to an old injury; however, no acute fracture is identified. Dictated by: Dictated on workstation # [id number] Dict: 04/21/18 1501 Trans: 04/22/18 1024 Interpreted by: CARLOS KWONG MD Electronically signed by: CARLOS KWONG MD 04/22/18 1024 NAME: MEGAN MCCALL [facility] REC#: [id number] PHYSICIAN: MARTHA HOWARD CC: MARTHA HOWARD; CARLOS KWONG MD Page 1 of 1 RADIOLOGY REPORT VIA [place], [place] CC: NATI HOWARD THOMAS J MD Page 1 of 1 RADIOLOGY REPORT NAME: MEGAN MCCALL [facility] REC#: [id number] PT STATUS: DEP ER : 1985 PHYSICIAN: MARTHA HOWARD ADMIT DATE: 04/21/18/ER Signed Date of Exam: 04/21/18 WRIST, RIGHT, 3 VIEWS OR MORE INDICATION: Fall from a ladder with right wrist injury and pain. TECHNIQUE: AP, oblique, and lateral views of the right wrist were obtained. FINDINGS: There is a corticated ossicle at the level of the ulnar styloid process, likely related to an old fracture. There is mild ulna minus variation; otherwise, no fracture or malalignment is seen. IMPRESSION: No acute abnormality is identified. There is mild ulna minus variation with a probable old fracture deformity of the ulnar styloid process. Dictated by: Dictated on workstation # [id number] Dict: 04/21/18 1503 Trans: 04/22/18 1024 Interpreted by: CARLOS KWONG MD Electronically signed by: CARLOS KWONG MD 04/22/18 1024 Reviewed: Reviewed by Me Departure Impression Primary Impression: Contusion of wrist Additional Impression: Right wrist sprain Disposition: HOME, SELF-CARE Condition: Stable/Unchanged Departure-Patient Inst. Decision time for Depature: 15:29 Referrals: NO,LOCAL PHYSICIAN (PCP) Primary Care Physician Patient Instructions: Wrist Sprain (DC) Add. Discharge Instructions: Rest, ice to the sore areas a 20 minute intervals, wear the Sy bandage as needed for comfort, you may use ibuprofen and Tylenol as directed by the bottle for pain relief. Follow-up with your primary care provider within 1 week for recheck. Return back to the emergency room for any worsening symptoms or concerns as needed. All discharge instructions reviewed with patient and/or family. Voiced understanding. MARTHA HOWARD Apr 21, 2018 14:29
--- NOTE | 2018-04-21 15:15 | Diagnostic Imaging Report ---
INDICATION: Right wrist and hand pain after a fall from a ladder. FINDINGS: There is mild bowing deformity of the distal shaft of the fifth metacarpal. A fracture line is not identified. No other fracture or malalignment is seen. There is no abnormal lytic or sclerotic focus. There is a possible old fracture deformity involving the ulnar styloid process with mild ulna minus variation. IMPRESSION: An ossicle at the level of the ulnar styloid process may be the result of an old injury. The bowing of the distal fifth metacarpal shaft may also be secondary to an old injury; however, no acute fracture is identified. Dictated by: Dictated on workstation # [id number]
--- NOTE | 2018-04-21 15:17 | Diagnostic Imaging Report ---
INDICATION: Fall from a ladder with right wrist injury and pain. TECHNIQUE: AP, oblique, and lateral views of the right wrist were obtained. FINDINGS: There is a corticated ossicle at the level of the ulnar styloid process, likely related to an old fracture. There is mild ulna minus variation; otherwise, no fracture or malalignment is seen. IMPRESSION: No acute abnormality is identified. There is mild ulna minus variation with a probable old fracture deformity of the ulnar styloid process. Dictated by: Dictated on workstation # [id number]
[2018-04-21 15:34] VITALS: BP 128/85
== END 2018-04-21 15:33 | disposition home or self-care (01) ==
LOC: EDUNIT# 12:38 → ER 12:39
DX: S63.501A Unspecified sprain of right wrist, initial encounter (principal); Z87.891 Personal history of nicotine dependence; W11.XXXA Fall on and from ladder, initial encounter
CPT/HCPCS: 73110; 73130

== ENCOUNTER 2018-05-30 17:18 | Emergency (ER) | payer SELFPAY ==
[~2018-05-30] VITALS: Ht 180.3 cm; Wt 104.3 kg
--- OUTSIDE RECORDS SUMMARY | 2018-05-30 18:54 | XMS REPORT | Continuity of Care Document ---
Demographics x Preferred Language Unknown Marital Status Unknown Advent Affiliation Unknown Race Unknown Ethnic Group Unknown Author Author [facility] Organization [facility] Address Unknown Phone Unavailable Allergies Active Description Code Type Severity Reaction Onset Reported/Identified Relationship to Patient Clinical Status Yes No known drug allergies [id number] ND N/A N/A Confirmed or Verified Yes No Known Drug Allergies [id number] Drug Allergy Unknown N/A 12/23/2017 Medications There [...] Procedures Code [place] [address] X-RAY EXAM OF FOOT 11/09/2013 91659 EMERGENCY DEPT VISIT 11/09/2013 26197 EMERGENCY DEPT VISIT 11/09/2013 60256 ROUTINE VENIPUNCTURE 11/03/2015 96131 X-RAY EXAM OF ANKLE 11/03/2015 09180 COMPREHEN METABOLIC PANEL 11/03/2015 68012 ANALGESICS NON-OPIOID 1 OR 2 11/03/2015 12240 ASSAY OF BLOOD/URIC ACID 11/03/2015 81683 COMPLETE CBC W/AUTO DIFF WBC 11/03/2015 43403 EMERGENCY DEPT VISIT 11/03/2015 Results Test Result [...] 11:00 Bacteria identification in wound by culture [id number] NRG FREE TEXT EXTERNAL MANY NRG QUANTITY OF GROWTH . NRG FREE TEXT ENTRY 2 RML SENSITIVITY REPORTED 02/13/18 12:05 NRG CALL POSITIVES (F1 HELP) CALLED TO CIERA /ER 02/13/18 13:05 BY Gilbert GONZALEZ [facility] RML Sensitivity Panel - 02/11/18 11:00 Oxacillin [...] Status Pt. Type Provider Facility Loc./Unit Complaint [id number] 11/03/2015 11:30:00 11/03/2015 13:43:00 DIS Emergency MARLENIJO Alonso [facility] EMR [id number] 07/03/2015 07:54:00 07/03/2015 08:27:00 DIS Emergency OLGA JADON Reanna [facility] EMR [id number] 05/23/2015 08:27:00 05/23/2015 08:27:00 DIS Outpatient JO YEPEZ [facility] [id number] 05/20/2015 11:22:00 05/20/2015 14:00:00 DIS Emergency MARLENIJO NAZARIO [facility] EMR [id number] 11/09/2013 12:30:00 11/09/2013 13:55:00 DIS Emergency JO MILLER [facility] EMR [id number] 06/05/2015 00:00:00 Document Registration [id number] 06/05/2014 00:00:00 Document Registration [id number] 04/21/2018 12:39:00 04/21/2018 15:33:00 DIS Emergency MARTHA HOWARD [facility] ER R WRIST INJ [id number] 12/23/2017 10:40:00 12/23/2017 11:50:00 DIS Emergency JOSH LEI, JOSÉ LUIS Alonso [facility] ER POSS SPIDER BITE ON LT CHEEK [id number] 02/13/2018 11:35:00 Document Registration [id number] 02/11/2018 17:11:00 Document Registration [id number] 04/30/2017 16:55:00 04/30/2017 23:59:59 CLS Outpatient TARA SALAZAR [facility] [id number] 03/24/2016 13:25:01 ACT Unknown
--- NOTE | 2018-05-30 20:08 | ED Integumentary General ---
General Chief Complaint: Skin/Wound Problems Stated Complaint: SPIDER BITE ON FACE/SWELLING Nursing Triage Note: STATES FRI/FRI NOTICED ABSCESS/SPIDER BITE LEFT UPPER LIP. STATES RECIEVED TETANUS, ROCEPHIN, AND 2 TWO OTHER SHOTS. PT STATES PLACED ON DOXY. STATES AREA WORSENED SINCE. Source: patient Exam Limitations: no limitations History of Present Illness Date Seen by Provider: May 30, 2018 Time Seen by Provider: 20:04 Initial Comments To ER by private vehicle with reports of a spider bite to the left upper lip. He states that he was putting on a shirt when he felt a spider bite him on Friday. Today is Friday. He was seen in urgent care at that time and given a shot of Rocephin, tetanus shot and given doxycycline prescription which he is still on. He denies improvement and reports persistent swelling despite warm compresses to the area. Timing/Duration: week, getting worse Severity: mild Location: face Allergies and Home Medications Allergies Coded Allergies: No Known Drug Allergies (Unverified , 12/23/17) Home Medications Hydrocodone/Acetaminophen 1 Each Tablet, 1 EACH PO Q4H PRN for FEVER Prescribed by: SARIKA WORTHINGTON on 02/11/18 1111 Sulfamethoxazole/Trimethoprim 1 Each Tablet, 1 EACH PO BID Prescribed by: JOSÉ LUIS MUNIZ on 12/23/17 1142 Sulfamethoxazole/Trimethoprim 1 Each Tablet, 1 EACH PO BID Prescribed by: SARIKA WORTHINGTON on 02/11/18 1111 Patient Home Medication List Home Medication List Reviewed: Yes Review of Systems Review of Systems Constitutional: see HPI, chills EENTM: see HPI, other (to the lateral aspect of the left upper lip just superior to the vermilion border is an area of induration and erythema and slight fluctuance. This measures about 1.5 cm.) Respiratory: no symptoms reported Cardiovascular: no symptoms reported Genitourinary: no symptoms reported Musculoskeletal: no symptoms reported Skin: no symptoms reported Endocrine: No Symptoms Reported Past Rkerhew-Dinvfu-Ppdhkf Hx Patient Social History Alcohol Use: Occasionally Uses Number of Drinks Today: AA Alcohol Beverage of Choice: Beer Recreational Drug Use: Yes Drug of Choice: past hx cannibus Smoking Status: Former Smoker Former Smoker, Quit: Feb 04, 2006 2nd Hand Smoke Exposure: No Recent Foreign Travel: No Contact w/Someone Who Travel: No Recent Infectious Disease Expo: No Recent Hopitalizations: No Immunizations Up To Date Tetanus Booster (TDap): Less than 5yrs Seasonal Allergies Seasonal Allergies: No Past Medical History Surgeries: Yes (LT ARM) Orthopedic Respiratory: No Cardiac: No Neurological: No Genitourinary: No Gastrointestinal: No Musculoskeletal: No Endocrine: No HEENT: No Cancer: No Psychosocial: No Integumentary: No Blood Disorders: No Physical Exam Vital Signs Vital Signs - First Documented 05/30/18 17:53 Temp 98.5 Pulse 84 Resp 20 B/P (MAP) 148/89 (108) Pulse Ox 96 O2 Delivery Room Air Capillary Refill : Less Than 3 Seconds General Appearance: WD/WN, no apparent distress HEENT: PERRL/EOMI, normal ENT inspection, other (to the lateral aspect upper lip just superior to the vermilion border is a 1.5 cm area of induration and erythema and slight fluctuance.) Neck: non-tender, full range of motion Respiratory: no respiratory distress, no accessory muscle use Gastrointestinal: normal bowel sounds, non tender Neurologic/Psychiatric: alert, normal mood/affect, oriented x 3 Skin: normal color, warm/dry Procedures/Interventions I&D : Blade Size: 11 Progress Wound anesthetized with 0.5 mL of 1% lidocaine without epinephrine. A stab incision made with an 11 blade scalpel over the area of Fluctuance. A moderate amount of purulent material was expressed. Culture of this was collected and sent to lab. Progress/Results/Core Measures Results/Orders My Orders Orders - SARIKA WORTHINGTON APRN Wound Culture (05/30/18 20:02) Rx-Hydrocodone/Apap 5-325 Mg (Rx-Vicodin (05/30/18 20:15) Vital Signs/I&O 05/30/18 17:53 Temp 98.5 Pulse 84 Resp 20 B/P (MAP) 148/89 (108) Pulse Ox 96 O2 Delivery Room Air Blood Pressure Mean: 108 Departure Impression Primary Impression: Abscess of face Disposition: 01 HOME, SELF-CARE Condition: Stable Departure-Patient Inst. Decision time for Depature: 20:07 Referrals: NO,LOCAL PHYSICIAN (PCP/Family) Primary Care Physician Patient Instructions: Skin Abscess Add. Discharge Instructions: 1. Return to ER for any concerns 2. Continue with the doxycycline and the warm compresses to the face. All discharge instructions reviewed with patient and/or family. Voiced understanding. Work/School Note: Work Release Form Date Seen in the Emergency Department: May 30, 2018 Return to Work: Jun 01, 2018 SARIKA WORTHINGTON APRN May 30, 2018 20:08
[2018-05-30] MEDS ORDERED: RX-HYDROCODONE/APAP 5/325 MG #4 TAB PK PO PRN (20:15)
[2018-05-30 20:23] VITALS: BP 142/78
== END 2018-05-30 20:23 | disposition home or self-care (01) ==
LOC: EDUNIT# 17:18 → ER 17:19
DX: L02.01 Cutaneous abscess of face (principal); Z87.891 Personal history of nicotine dependence
CPT/HCPCS: 87070; 87077; 87186; 87205; 99283

== ENCOUNTER 2018-12-19 17:33 | Emergency (ER) | payer SELFPAY ==
[~2018-12-19] VITALS: Ht 180.3 cm; Wt 98.4 kg
--- OUTSIDE RECORDS SUMMARY | 2018-12-19 17:40 | XMS REPORT ---
Author Author TORRIE RON Organization [facility] Address [address] [place] [address] Care Team Providers Care Director Of Residential Services Name Role Phone TORRIE RON Unavailable PROBLEMS Unknown Problems ALLERGIES No Known Allergies ENCOUNTERS Encounter Location Date Diagnosis [facility] [id number] [place] [phone] May, [facility] [id number] [place] [phone] May, Cellulitis of face L03.211 and Encounter for immunization Z23 [facility] [id number], [place] [address] Apr, Screen for STD (sexually transmitted disease) Z11.3 and Unprotected sex Z72.51 IMMUNIZATIONS Vaccine Route Administration Date Status ROCEPHIN 1 GM (IM) IM Intramuscular May 29, 2018 Administered TDAP (BOOSTRIX) IM Intramuscular May 29, 2018 Administered SOCIAL HISTORY Never Assessed REASON FOR VISIT spider bite on LT side of lip x 2 days. Pt states he felt the spider bite him a nd seen it fall to the floor. YONATAN Thompson PLAN OF CARE Activity Details Follow Up 2-3 days Reason:recheck VITAL SIGNS Height 71 in 2018-05-29 Weight 233.5 lbs 2018-05-29 Temperature 97.5 degrees Fahrenheit 2018-05-29 Heart Rate 92 bpm 2018-05-29 Respiratory Rate 18 2018-05-29 BMI 32.56 kg/m2 2018-05-29 Blood pressure systolic 122 mmHg 2018-05-29 Blood pressure diastolic 64 mmHg 2018-05-29 MEDICATIONS Medication Instructions Dosage Frequency Start Date End Date Duration Status Doxycycline Hyclate 100 MG Orally 2 times a day 1 capsule 12h May, 10 day(s) Active Ondansetron 4 MG Orally TID PRN 1 tablet on the tongue and allow to dissolve as needed May, 5 days Active RESULTS No Results PROCEDURES Procedure Date Ordered Result Body Site TDAP (BOOSTRIX) May 29, 2018 SINGLE IMMUNIZATION ADMIN May 29, 2018 THER/PROPH/DIAG INJ, SC/IM May 29, 2018 ROCEPHIN 1 GM (IM) May 29, 2018 INSTRUCTIONS MEDICATIONS ADMINISTERED No Known Medications MEDICAL (GENERAL) HISTORY Type Description Date Surgical History left arm surgery
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
--- OUTSIDE RECORDS SUMMARY | 2018-12-19 17:40 | XMS REPORT ---
Author Author TORRIE RON Organization [facility] Address [address] [place] [address] Care Team Providers Care Tableau Lead Name Role Phone TORRIE RON Unavailable PROBLEMS Unknown Problems ALLERGIES No Information ENCOUNTERS Encounter Location Date Diagnosis [facility] [id number], [place] [address] May, [facility] [id number], [place] [address] May, Cellulitis of face L03.211 and Encounter for immunization Z23 [facility] [id number], [place] [address] Apr, Screen for STD (sexually transmitted disease) Z11.3 and Unprotected sex Z72.51 IMMUNIZATIONS No Known Immunizations SOCIAL HISTORY Never Assessed REASON FOR VISIT Doctor's note PLAN OF CARE VITAL SIGNS MEDICATIONS Unknown Medications RESULTS No Results PROCEDURES No Known procedures INSTRUCTIONS MEDICATIONS ADMINISTERED No Known Medications MEDICAL (GENERAL) HISTORY Type Description Date Surgical History left arm surgery
[2018-12-19] MEDS ORDERED: LIDOCAINE 1% INJ 20 ML 20 ML VIAL INJ ONE (18:00)
--- NOTE | 2018-12-19 18:24 | ED Integumentary General ---
General Chief Complaint: Skin/Wound Problems Stated Complaint: LEFT HIP SORE Nursing Triage Note: TO TRIAGE WITH COMPLAINTS OF POSSIBLE SPIDER BITE TO LEFT LOWER ABD/GROIN AREA. STATES THE REDNESS STARTED YESTERDAY WHICH IS NOW SPREADING WITH A BLACK CENTER. COMPLAINS OF NAUSEA AND DIZZINESS. Source: patient Exam Limitations: no limitations History of Present Illness Date Seen by Provider: Dec 19, 2018 Time Seen by Provider: 18:00 Initial Comments Patient presents with going on for days of redness swelling and tenderness in his left anterior proximal thigh. Does not have a history of hidradenitis suppurativa. No fevers chills nausea vomiting. He's been using ibuprofen for the pain. Not seen anybody for nor started antibiotics yet. Allergies and Home Medications Allergies Coded Allergies: No Known Drug Allergies (Unverified , 12/23/17) Home Medications Hydrocodone/Acetaminophen 1 Each Tablet, 1 EACH PO Q4H PRN for FEVER Prescribed by: SRAIKA WORTHINGTON on 02/11/18 1111 Sulfamethoxazole/Trimethoprim 1 Each Tablet, 1 EACH PO BID Prescribed by: JOSÉ LUIS MUNIZ on 12/23/17 1142 Sulfamethoxazole/Trimethoprim 1 Each Tablet, 1 EACH PO BID Prescribed by: SARIKA WORTHINGTON on 02/11/18 1111 Patient Home Medication List Home Medication List Reviewed: Yes Review of Systems Review of Systems Constitutional: No chills, No diaphoresis EENTM: No ear discharge, No ear pain, No eye pain Respiratory: No cough, No phlegm Cardiovascular: No chest pain, No palpitations Past Zlvzqmx-Pitpua-Bxzxyv Hx Patient Social History Alcohol Use: Rarely Uses Number of Drinks Today: AA Alcohol Beverage of Choice: Beer Recreational Drug Use: No Drug of Choice: past hx cannibus Smoking Status: Former Smoker Former Smoker, Quit: Feb 04, 2006 2nd Hand Smoke Exposure: No Recent Foreign Travel: No Contact w/Someone Who Travel: No Recent Infectious Disease Expo: No Recent Hopitalizations: No Immunizations Up To Date Tetanus Booster (TDap): Less than 5yrs Seasonal Allergies Seasonal Allergies: No Past Medical History Surgeries: Yes (LT ARM) Orthopedic Respiratory: No Cardiac: No Neurological: No Genitourinary: No Gastrointestinal: No Musculoskeletal: No Endocrine: No HEENT: No Cancer: No Psychosocial: No Integumentary: No Blood Disorders: No Physical Exam Vital Signs Vital Signs - First Documented 12/19/18 17:46 Temp 98.2 Pulse 115 Resp 16 B/P (MAP) 148/94 (112) Pulse Ox 98 O2 Delivery Room Air Capillary Refill : Less Than 3 Seconds General Appearance: WD/WN, no apparent distress HEENT: PERRL/EOMI, pharynx normal Cardiovascular: normal peripheral pulses, regular rate, rhythm Respiratory: no respiratory distress, no accessory muscle use Skin: other (8 cm long by 3 cm wide area of erythema, induration with palpable fluctuance and some purulent discharge originating on the anterior proximal left thigh radiating down into the left inguinum.) Procedures/Interventions I&D : Site: left anterior proximal thigh Blade Size: 11 I & D Procedure: betadine prep (chlorhexidine) Progress Wound was cleaned then 5 cc of 1% lidocaine without epinephrine were infiltrated around the pointing. Wound was opened and a cross armstrong incision using an 11 blade. Wound was probed using a sterile cotton tipped swab breaking up loculations and a total of about 10 cc of thick purulent matter was expressed. Patient tolerated procedure well. Progress/Results/Core Measures Results/Orders Medications Given in ED Current Medications Medications Dose Ordered Sig/Zack Route Start Time Stop Time Status Last Admin Dose Admin Lidocaine HCl 20 ml ONCE ONCE INJ 12/19/18 18:00 12/19/18 18:01 DC 12/19/18 18:06 20 ML Vital Signs/I&O 12/19/18 17:46 Temp 98.2 Pulse 115 Resp 16 B/P (MAP) 148/94 (112) Pulse Ox 98 O2 Delivery Room Air Blood Pressure Mean: 112 Departure Impression Primary Impression: Abscess Disposition: 01 HOME, SELF-CARE Condition: Improved Departure-Patient Inst. Decision time for Depature: 18:16 Referrals: NO,LOCAL PHYSICIAN (PCP/Family) Primary Care Physician Patient Instructions: Abscess Incision and Drainage (DC) Add. Discharge Instructions: Keep the wound clean with regular soap and water. Change the dressing as often as it becomes soiled. sales support technician the antibiotics and take one tablet of Bactrim twice a day with food for the next week. Follow-up with primary care or return to urgent care/ER for recurrence of abscess. All discharge instructions reviewed with patient and/or family. Voiced understanding. Scripts Sulfamethoxazole/Trimethoprim (Bactrim Ds Tablet) 1 Each Tablet 1 EACH PO BID for 7 Days, #14 TAB 0 Refills Prov: JONAS,EMI J 12/19/18 EMI MCDANIEL Dec 19, 2018 18:24
[2018-12-19 18:27] VITALS: BP 148/94
[2018-12-19] MEDS ORDERED: SULF1TAB35 PO (18:29)
== END 2018-12-19 18:28 | disposition home or self-care (01) ==
LOC: EDUNIT# 17:33 → ER 17:35
DX: L02.416 Cutaneous abscess of left lower limb (principal); Z87.891 Personal history of nicotine dependence
CPT/HCPCS: 10060

== ENCOUNTER 2019-06-03 08:08 | Emergency (ER) | payer OTHER ==
[~2019-06-03] VITALS: Ht 180.3 cm; Wt 116.4 kg
[2019-06-03] MEDS ORDERED: TRIM/SULFAMETH 160/800 (SEPTRA DS) TAB PO STA (09:48)
[2019-06-03] MEDS ORDERED: SULF-222 PO (09:54)
--- NOTE | 2019-06-03 09:54 | ED Integumentary General ---
General Chief Complaint: Bite-Animal/Human/Insect Stated Complaint: SPIDER BITE Nursing Triage Note: Pt reports raking leaves yesterday and feeling a sting to the back of L leg. Pt is worried about a spider bite as had a terrible spider bite. Small puncture noted to back of leg. Pt reports mild pain at site. Source: patient Exam Limitations: no limitations History of Present Illness Date Seen by Provider: Jun 03, 2019 Time Seen by Provider: 09:41 Initial Comments Here with report of feeling like he got bit by an insect yesterday while raking leaves. He thought he felt something crawling and thinks he was bitten by a spider. Did have significant redness in the area of concern yesterday evening that is a little better this morning. States that it was 2-3 cm at least of redness but now and swelling about a centimeter. There is a central core. Apparently his had a spider bite that turned necrotic and he is very concerned about that. Denies other issues. Timing/Duration: yesterday, changing over time Severity: mild Location: extremities Possible Cause: insect bite Modifying Factors: improves with scratching Associated Symptoms: No blisters, No edema, No rash Allergies and Home Medications Allergies Coded Allergies: No Known Drug Allergies (Unverified , 12/23/17) Home Medications Hydrocodone/Acetaminophen 1 Each Tablet, 1 EACH PO Q4H PRN for FEVER Prescribed by: SARIKA WORTHINGTON on 02/11/18 1111 Sulfamethoxazole/Trimethoprim 1 Each Tablet, 1 EACH PO BID Prescribed by: JOSÉ LUIS MUNIZ on 12/23/17 1142 Sulfamethoxazole/Trimethoprim 1 Each Tablet, 1 EACH PO BID Prescribed by: SARIKA WORTHINGTON on 02/11/18 1111 Sulfamethoxazole/Trimethoprim 1 Each Tablet, 1 EACH PO BID Prescribed by: EMI MCDANIEL on 12/19/18 1829 Patient Home Medication List Home Medication List Reviewed: Yes Review of Systems Review of Systems Constitutional: see HPI; No chills, No fever Respiratory: no symptoms reported Cardiovascular: no symptoms reported Skin: see HPI, change in color, lesions Psychiatric/Neurological: No Symptoms Reported Past Ymwfnpb-Trllya-Sldswe Hx Past Med/Social Hx: Reviewed Nursing Past Med/Soc Hx Patient Social History Alcohol Use: Occasionally Uses Number of Drinks Today: AA Alcohol Beverage of Choice: Beer Recreational Drug Use: No Drug of Choice: past hx cannibus Smoking Status: Never a Smoker Former Smoker, Quit: Feb 04, 2006 2nd Hand Smoke Exposure: No Recent Foreign Travel: No Contact w/Someone Who Travel: No Recent Infectious Disease Expo: No Recent Hopitalizations: No Immunizations Up To Date Tetanus Booster (TDap): Less than 5yrs Seasonal Allergies Seasonal Allergies: No Past Medical History Surgeries: Yes (LT ARM, lung surgery as ) Orthopedic Respiratory: No Cardiac: No Neurological: No Genitourinary: No Gastrointestinal: No Musculoskeletal: No Endocrine: No HEENT: No Cancer: No Psychosocial: No Integumentary: No Blood Disorders: No Family Medical History Reviewed Nursing Family Hx Physical Exam Vital Signs Vital Signs - First Documented 06/03/19 08:12 Temp 36.7 Pulse 78 Resp 12 B/P (MAP) 138/98 (111) Pulse Ox 97 O2 Delivery Room Air Capillary Refill : Less Than 3 Seconds General Appearance: WD/WN, no apparent distress Cardiovascular: regular rate, rhythm, no murmur Respiratory: lungs clear, normal breath sounds Skin: normal color, warm/dry Skin Problem Location: lower extremities (left posterior leg) Skin Problem Character: lesion, other (central core surrounded by 1 cm to 2 cm of erythema. No obvious fluctuance area) Progress/Results/Core Measures Results/Orders Vital Signs/I&O 06/03/19 08:12 Temp 36.7 Pulse 78 Resp 12 B/P (MAP) 138/98 (111) Pulse Ox 97 O2 Delivery Room Air Blood Pressure Mean: 111 POS Progress Progress Note : Progress Note Seen and evaluated. Antibiotic ointment and Band-Aid over wound. Bactrim DS one tab by mouth given. We will continue his outpatient. Discharge home with return precautions. Patient verbalized understanding instructions and agreement with plan. Departure Impression Primary Impression: Spider bite wound Qualified Codes: T63.304A - Toxic effect of unspecified spider venom, undetermined, initial encounter Disposition: HOME, SELF-CARE Condition: Stable Departure-Patient Inst. Decision time for Depature: 09:53 Referrals: NO,LOCAL PHYSICIAN (PCP/Family) Primary Care Physician Patient Instructions: Insect Bites and Stings (DC), Spider Bites Add. Discharge Instructions: All discharge instructions reviewed with patient and/or family. Voiced understanding. Use antibiotic ointment and Band-Aid over wound twice daily for the next several days and then as needed. Take medications as directed. Follow-up with your Dr. in a few days for recheck. Return for worse pain, increased swelling, fever, red streaks up the leg or other concerns as needed. Scripts Sulfamethoxazole/Trimethoprim (Sulfamethoxazole-Tmp Ds Tablet) 1 Each Tablet 1 EACH PO BID, #14 TAB 0 Refills Prov: BRI ROBINS MD 06/03/19 Work/School Note: Work Release Form Date Seen in the Emergency Department: Jun 03, 2019 Return to Work: Jun 04, 2019 Restrictions: No Restrictions BRI ROBINS MD Jun 03, 2019 09:54 POS
[2019-06-03 10:01] VITALS: BP 138/98
--- NOTE | 2019-06-03 10:12 | NUR ---
Pt dismissed by another nurse prior to receive antibiotic.
== END 2019-06-03 10:01 | disposition home or self-care (01) ==
LOC: EDUNIT# 08:08 → ER 08:09
DX: T63.304A Toxic effect of unspecified spider venom, undetermined, initial encounter (principal); Z87.891 Personal history of nicotine dependence
CPT/HCPCS: 99283

== ENCOUNTER 2019-11-11 11:22 | Emergency (ER) | payer OTHER ==
[~2019-11-11] VITALS: Ht 180.3 cm; Wt 110.0 kg
[~2019-11-11 11:22] MED LIST changes: +SULF-222 PO
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
[2019-11-11 13:00] VITALS: BP 159/101
== END 2019-11-11 13:00 | disposition home or self-care (01) ==
LOC: EDUNIT# 11:22 → ER 11:23
DX: S83.412A Sprain of medial collateral ligament of left knee, initial encounter (principal); D16.22 Benign neoplasm of long bones of left lower limb; Z88.2 Allergy status to sulfonamides; Z87.891 Personal history of nicotine dependence; V01.90XA Pedestrian on foot injured in collision with pedal cycle, unspecified whether traffic or nontraffic accident, initial encounter
CPT/HCPCS: 73562

== ENCOUNTER 2022-02-17 20:05 | Emergency (ER) | payer OTHER ==
[~2022-02-17] VITALS: Ht 180 cm; Wt 125.0 kg
[~2022-02-17 20:05] MED LIST changes: -SULF1TAB35 PO; +SULF1TAB38 PO
[2022-02-17 20:24] VITALS: BP 143/89
--- NOTE | 2022-02-17 20:58 | ED GI ---
General Chief Complaint: COVID19 Suspect/Confirmed Stated Complaint: SOB,N/V,FEVER,COUGH,CONGESTION,BODY ACHES Nursing Triage Note: PT TO ED W/ C/O COUGH, CONGESTION, ELEVATED TEMP, N/V ONSET X4 DAYS, WORSE TODAY. REPORTS LAST TOOK TYLENOL THIS AM BUT DENIES TAKING ANYTHING SINCE STATING "I HURT TOO BAD, I DIDN'T WANT TO MOVE." NO OTHER C/O VOICED Source of Information: Patient Exam Limitations: No Limitations History of Present Illness Date Seen by Provider: Feb 17, 2022 Time Seen by Provider: 20:22 Initial Comments Pt to the ER by POV with Scratchy throat, N/V/ RUSSO. body aches, malaise since 3 days ago. Right ear hurts. Urinary fullness. He has had a fever. No known sick contacts. Allergies and Home Medications Allergies Coded Allergies: Sulfa (Sulfonamide Antibiotics) (Verified Allergy, Unknown, 11/11/19) Patient Home Medication List Home Medication List Reviewed: Yes Hydrocodone/Acetaminophen (Hydrocodone/Acetaminophen 5 MG/325 MG TAB) 1 Each Tablet, 1 EACH PO Q4H PRN for FEVER Prescribed by: SARIKA WORTHINGTON on 02/11/18 1111 Sulfamethoxazole/Trimethoprim (Bactrim Ds Tablet) 1 Each Tablet, 1 EACH PO BID Prescribed by: JOSÉ LUIS MUNIZ on 12/23/17 1142 Sulfamethoxazole/Trimethoprim (Bactrim Ds Tablet) 1 Each Tablet, 1 EACH PO BID Prescribed by: SARIKA WORTHINGTON on 02/11/18 1111 Sulfamethoxazole/Trimethoprim (Bactrim Ds Tablet) 1 Each Tablet, 1 EACH PO BID Prescribed by: EMI MCDANIEL on 12/19/18 1829 Sulfamethoxazole/Trimethoprim (Sulfamethoxazole-Tmp Ds Tablet) 1 Each Tablet, 1 EACH PO BID Prescribed by: BRI ROBINS on 06/03/19 0954 Review of Systems Review of Systems Constitutional: No chills, No diaphoresis EENTM: No Blurred Vision, No Double Vision Respiratory: Denies Cough, Denies Shortness of Air Cardiovascular: Denies Chest Pain, Denies Lightheadedness Gastrointestinal: Denies Constipated, Denies Diarrhea, Denies Nausea Genitourinary: Denies Burning, Denies Discharge Musculoskeletal: No no symptoms reported, No back pain, No joint pain All Other Systems Reviewed Negative Unless Noted: Yes Past Bnywflw-Dvxseg-Cyquey Hx Patient Social History Tobacco Use?: No Use of E-Cig and/or Vaping dev: No Substance use?: No Alcohol Use?: Yes Alcohol Frequency: Couple times a week Pt feels they are or have been: No Immunizations Up To Date Tetanus Booster (TDap): Less than 5yrs Seasonal Allergies Seasonal Allergies: No Past Medical History Surgeries: Yes (LT ARM, lung surgery as ) Orthopedic Respiratory: No Cardiac: No Neurological: No Genitourinary: No Gastrointestinal: No Musculoskeletal: No Endocrine: No HEENT: No Cancer: No Psychosocial: No Integumentary: No Blood Disorders: No Physical Exam Vital Signs Vital Signs - First Documented 02/17/22 20:24 Temp 38.0 Pulse 93 Resp 20 B/P (MAP) 143/89 (107) Pulse Ox 97 O2 Delivery Room Air Capillary Refill : Less Than 3 Seconds Height/Weight/BMI Height: 5'11.00" Weight: 217lbs. 0oz. 98.818585cn; 38.00 BMI Method:Stated General Appearance: WD/WN, no apparent distress HEENT: PERRL/EOMI; No TMs normal; pharynx normal Neck: full range of motion, normal inspection Respiratory: lungs clear, normal breath sounds, no respiratory distress, no accessory muscle use Cardiovascular: normal peripheral pulses, regular rate, rhythm Peripheral Pulses: 2+ Radial Pulses (R), 2+ Radial Pulses (L) Gastrointestinal: normal bowel sounds, non tender, soft Extremities: normal inspection, normal capillary refill Neurologic/Psychiatric: alert, normal mood/affect, oriented x 3 Skin: normal color, warm/dry Progress/Results/Core Measures Results/Orders Lab Results Laboratory Tests Test 02/17/22 20:27 Range/Units Influenza Type A (RT-PCR) Not Detected Not Detecte Influenza Type B (RT-PCR) Not Detected Not Detecte SARS-CoV-2 RNA (RT-PCR) Detected H Not Detecte My Orders Orders - EMI MCDANIEL Covid 19 Inhouse Test (02/17/22 20:29) Influenza A And B By Pcr (02/17/22 20:29) Vital Signs/I&O 02/17/22 20:24 Temp 38.0 Pulse 93 Resp 20 B/P (MAP) 143/89 (107) Pulse Ox 97 O2 Delivery Room Air Blood Pressure Mean: 107 Progress Progress Note : Time: 21:02 Progress Note Patient declining for nausea or pain at this time. He does have a little fever. Encouraged to use Tylenol and Motrin. Swab for COVID and influenza. We will send him home with a take-home pack of ondansetron. Departure Impression Primary Impression: COVID-19 Disposition: 01 HOME, SELF-CARE Condition: Stable Departure-Patient Inst. Decision time for Depature: 21:12 Referrals: NO,LOCAL PHYSICIAN (PCP/Family) Primary Care Physician Patient Instructions: COVID-19 Home Care/Discharge Add. Discharge Instructions: Ondansetron 1 tablet under the tongue every 6 hours needed for nausea or vomiting. Tylenol 1000 mg every 8 hours needed for fever or headaches. Ibuprofen 800 mg every 8 hours needed for fever or headaches. Paxlovid twice a day with food for 5 days to reduce severity and length of symptoms. All discharge instructions reviewed with patient and/or family. Voiced unde rstanding. Scripts Ondansetron (Ondansetron Odt) 4 Mg Tab.rapdis 4 MG PO Q6H PRN for NAUSEA/VOMITING, #8 TAB 0 Refills Prov: EMI MCDANIEL 02/17/22 Work/School Note: Work Release Form Date Seen in the Emergency Department: Feb 17, 2022 Return to Work: Feb 24, 2022 Restrictions: Return-No Fever (24hrs) EMI MCDANIEL Feb 17, 2022 20:58
[2022-02-17] MEDS ORDERED: ONDA4TAB11 PO (21:12)
[2022-02-17] MEDS ORDERED: RX-ONDANSETRON 4 MG ODT (ZOFRAN) PPK #4 PO STA (21:13)
[2022-02-17] MEDS ORDERED: RX-NIRMATRELVIR/RITONAVIR (PAXLOVID) #30 TABS PO SCH (21:15)
== END 2022-02-17 21:37 | disposition home or self-care (01) ==
LOC: EDUNIT# 20:05 → ER 20:08
DX: U07.1 COVID-19 (principal)
CPT/HCPCS: 87636; 99283